=== PATIENT | male | born 1990 | race African-American/Black ===

== ENCOUNTER 2018-01-25 06:26 | Inpatient (IN) | payer OTHER ==
[2018-01-25] MEDS ORDERED: THROMBIN (BOVINE) 5,000 UNIT VIAL TP ONE ×3 (07:16→12:05)
[2018-01-25] MEDS ORDERED: oxyCODONE HCL 10 MG SUSTAINED ACTING TABLET ONE (07:20)
[2018-01-25] MEDS ORDERED: ceFAZolin SODIUM 1 GM VIAL ONE ×3 (07:20→12:05)
[2018-01-25] MEDS ORDERED: ePHEDrine SULFATE 50 MG/1 ML AMPULE ONE (07:29)
[2018-01-25] MEDS ORDERED: ROCURONIUM BROMIDE 50 MG/5 ML VIAL ONE ×2 (07:29→10:18)
[2018-01-25] MEDS ORDERED: PROPOFOL 20 ML ONE ×18 (07:29→14:34)
[2018-01-25] MEDS ORDERED: SUCCINYLCHOLINE CHLORIDE 200 MG/10 ML VIAL ONE (07:29)
[2018-01-25] MEDS ORDERED: ONDANSETRON 4 MG/2 ML VIAL ONE (07:30)
[2018-01-25] MEDS ORDERED: DEXAMETHASONE SOD PHOSPHATE 4 MG/1 ML VIAL ONE (07:30)
[2018-01-25] MEDS ORDERED: oxyCODONE HCL 5 MG TABLET PO ONE (07:30)
[2018-01-25] MEDS ORDERED: MIDAZOLAM HCL 2 MG/2 ML SINGLE DOSE VIAL ONE (07:30)
[2018-01-25] MEDS ORDERED: LIDOCAINE HCL/PF 2% SDV 5ML VIAL ONE ×2 (07:30→14:43)
[2018-01-25] MEDS ORDERED: CEFAZOLIN 1 GM in DEXTROSE 5%-WATER - 100 ML IVPB ONE (07:40)
[2018-01-25] MEDS ORDERED: oxyCODONE HCL 10 MG SUSTAINED ACTING TABLET PO STA (07:40)
[2018-01-25] MEDS ORDERED: KETAMINE HCL 200 MG/20 ML VIAL ONE ×2 (07:42)
[2018-01-25] MEDS ORDERED: morphine SULFATE/Preservative Free 0.5 MG/ML (1cc Syringe) ONE (07:55)
[2018-01-25] MEDS ORDERED: LIDOCAINE HCL 2% (20ML MULTI-DOSE VIAL) NR ONE (07:57)
--- NOTE | 2018-01-25 08:34 | HP ---
History & Physical Update - History History: No Change - Physical Physical: No Change - Assessment Assessment: No Change - Plan Plan: No Change (H&P is located in his paper chart. Complete and accurate. No new medications or complaints since intial H&P.)
[2018-01-25] MEDS ORDERED: HEPARIN NA (PORCINE) 5,000 UNITS/ML 1ML VIAL ONE (09:24)
[2018-01-25] MEDS ORDERED: LIDOCAINE 1%/EPI 1:100000 (50 ML MULTI DOSE VIAL) INF ONE (09:30)
--- NOTE | 2018-01-25 10:44 | EKG ---
Test Reason : Blood Pressure : / mmHG Vent. Rate : 060 BPM Atrial Rate : 060 BPM P-R Int : 142 ms QRS Dur : 086 ms QT Int : 366 ms P-R-T Axes : 074 055 017 degrees QTc Int : 366 ms NORMAL SINUS RHYTHM NORMAL ECG NO PREVIOUS ECGS AVAILABLE Confirmed by EVER PAIGE, LACEY ([id number]) on 01/25/2018 10:44:25 AM Referred By: DAYA JUSTIN Confirmed By:LACEY CURTIS MD
[2018-01-25] MEDS ORDERED: GELATIN SPONGE,ABSORBABLE 1 GM PACKET TP ONE (11:05)
[2018-01-25] MEDS ORDERED: hydrALAZINE HCL 20 MG/ML VIAL ONE ×2 (11:19→11:24)
[2018-01-25] MEDS ORDERED: BUPIVACAINE HCL/PF 0.25% (2.5MG/ML) 10 ML VIAL ONE ×2 (14:27→14:42)
[2018-01-25] MEDS ORDERED: ONDANSETRON 4 MG/2 ML VIAL IVPUSH PRN ×2 (15:14→16:21)
[2018-01-25] MEDS ORDERED: LACTATED RINGERS SOLUTION 1,000 ML IV SCH (15:15)
--- NOTE | 2018-01-25 16:20 | OP ---
Operative Note - Note: Operative Date: 01/25/18 Pre-Operative Diagnosis: Spinal scoliosis Operation: T7-L4 posterior spinal fusion, instrumentation w/ multilevel facetectomy Post-Operative Diagnosis: Same as Pre-op Surgeon: Fady Villarreal Landfill Grader: Doug Wilkerson Anesthesiologist/COMPENSATION AND BENEFITS MANAGER: Nieves Gutierrez Anesthesia: General Estimated Blood Loss (mls): 800 Drains, Volume Out (mls): 580 (campo/clear) Blood Volume Replaced (mls): 250 (cell saver) Fluid Volume Replaced (mls): 3,500 Operative Report Dictated: Yes
[2018-01-25] MEDS ORDERED: oxyCODONE HCL 5 MG TABLET PO PRN ×2 (16:21)
[2018-01-25] MEDS ORDERED: diphenhydrAMINE HCL 25 MG CAPSULE (FP) PO PRN (16:21)
--- NOTE | 2018-01-25 16:21 | SURG ---
Surgery [employer] Lead Note [employer] Lead: Doug Wilkerson PA-C Date of Service: 01/25/18 Diagnosis: Spinal scoliosis Procedure: T7-L4 posterior spinal fusion with instrumentation and multilevel facetectomy I was present for the entirety of the operative procedure. For further detail, please refer to operative report. Visit type - Case Type Case Type: Scheduled - New patient This patient is new to me today: Yes Date on this admission: 01/25/18
[2018-01-25] MEDS ORDERED: LACTATED RINGERS SOLUTION 1,000 ML/1,000 ML INFUS.BAG IV SCH (16:30)
[2018-01-25] MEDS ORDERED: ACETAMINOPHEN 325 MG TABLET (FP) PO SCH (16:30)
[2018-01-25] MEDS ORDERED: BUPIVACAINE LIPOSOME/PF (EXPAREL) 266 MG/20 ML VIAL NR ONE (16:45)
[2018-01-25] MEDS ORDERED: ACETAMINOPHEN 1000 MG/100 ML VIAL (NON FORMULARY) IVPB ONE (16:45)
[2018-01-25] MEDS ORDERED: ACETAMINOPHEN INJECTION 100 ML IVPB ONE (18:29)
[2018-01-25] MEDS: LACTATED RINGERS SOLUTION 1,000 ML/1,000 ML INFUS.BAG IV SCH ×2 (18:44→19:30)
--- NOTE | 2018-01-25 19:54 | CONSULT ---
Consultation: REQUESTING PROVIDER: Dr. Fontaine CONSULT REQUEST: We have been asked to medically evaluate this patient for S/P T7-L4 posterior spinal fusion, instrumentation w/ multilevel facetectomy. HISTORY OF PRESENT ILLNESS: Patient is a 27 year old male with a PMHx of scoliosis who presented today for elective surgical procedure for Spinal fusion and facetectomy. Patient reports chronic lumbar and thoracic back pain for the past 5 years that has been worsening in the last 2 years with unsuccessful attempts at medical management. Patient has tried epidurals, physical therapy, and pain management without much relief. Patient then had MRI of the back done, which revealed a bulging disc. 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 Patient was fluid resuscitated with 3.5 Liters. Patient now transmitted to ICU for further monitoring and management. Patient currently denies any fever, chills, nausea, vomiting, abdominal pain, chest pain, palpitations, shortness of breath, headaches, dizziness. 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 Single and lives with family Denies Alcohol use Denies smoking Reports using Marijuana Family Hx: Denies Allergies: NKDA REVIEW OF SYSTEMS: CONSTITUTIONAL: Absent: fever, chills, diaphoresis, generalized weakness, malaise, loss of appetite, weight change HEENT: Absent: rhinorrhea, nasal congestion, throat pain, throat swelling, difficulty swallowing, mouth swelling, ear pain, eye pain, visual changes CARDIOVASCULAR: Absent: chest pain, syncope, palpitations, irregular heart rate, lightheadedness , peripheral edema RESPIRATORY: Absent: cough, shortness of breath, dyspnea with exertion, orthopnea, wheezing, stridor, hemoptysis GASTROINTESTINAL: Absent: abdominal pain, abdominal distension, nausea, vomiting, diarrhea, constipation, melena, hematochezia GENITOURINARY: Absent: dysuria, frequency, urgency, hesitancy, hematuria, flank pain, genital pain MUSCULOSKELETAL: Absent: myalgia, arthralgia, joint swelling, back pain, neck pain SKIN: Absent: rash, itching, pallor HEMATOLOGIC/IMMUNOLOGIC: Absent: easy bleeding, easy bruising, lymphadenopathy, frequent infections ENDOCRINE: Absent: unexplained weight gain, unexplained weight loss, heat intolerance, cold intolerance NEUROLOGIC: Absent: headache, focal weakness or paresthesias, dizziness, unsteady gait, seizure, mental status changes, bladder or bowel incontinence PSYCHIATRIC: Absent: anxiety, depression, suicidal or homicidal ideation, hallucinations. PHYSICAL EXAMINATION Vital Signs - 24 hr 01/25/18 01/25/18 01/25/18 07:05 07:12 16:10 Temperature 98.8 F 100.4 F H Pulse Rate 64 93 H Respiratory 16 10 Rate Blood Pressure 123/75 106/46 L O2 Sat by Pulse 100 97 Oximetry (%) 01/25/18 01/25/18 16:25 16:40 Temperature Pulse Rate 97 H 88 Respiratory 12 14 Rate Blood Pressure 106/50 L 104/49 L O2 Sat by Pulse 99 99 Oximetry (%) GENERAL: Awake, alert, and fully oriented, in no acute distress. HEAD: Normal with no signs of trauma. EYES: Pupils equal, round and reactive to light, extraocular movements intact, sclera anicteric, conjunctiva clear. No lid lag. EARS, NOSE, THROAT: Oropharynx clear without exudates. Moist mucous membranes. NECK: (-) lymphadenopathy, JVD, or masses. LUNGS: Breath sounds equal, clear to auscultation bilaterally. No wheezes, and no crackles. No accessory muscle use. HEART: Regular rate and rhythm, normal S1 and S2 without murmur, rub or gallop. ABDOMEN: Soft, nontender, not distended, normoactive bowel sounds, no guarding, no rebound, no masses. MUSCULOSKELETAL: No CVA tenderness. UPPER EXTREMITIES: No peripheral edema. LOWER EXTREMITIES: No peripheral edema. NEUROLOGICAL: Cranial nerves II-XII intact. Normal speech. Sensory intact, motor strength 5/5 bilaterally PSYCHIATRIC: Cooperative. Good eye contact. Appropriate mood and affect. SKIN: Warm, dry, normal turgor, no rashes or lesions noted. DRAINS: Campo in place, Davol with sanguinous drainage Laboratory Results - last 24 hr 01/25/18 01/25/18 06:40 07:30 Blood Type O POSITIVE O POSITIVE Antibody Screen Negative Crossmatch IS Only See Detail Active Medications Generic Name Dose Route Start Last Admin Trade Name Freq PRN Reason Stop Dose Admin Acetaminophen 650 mg 01/25/18 18:00 Tylenol - PO Q6HPO TARIK Diazepam 2 mg 01/25/18 22:00 Valium - PO BID [facility] Diphenhydramine HCl 25 mg 01/25/18 16:21 Benadryl - PO Q6H PRN FOR ITCHING Docusate Sodium 100 mg 01/25/18 22:00 Colace - PO TID [facility] Ferrous Sulfate 325 mg 01/26/18 08:00 Feosol - PO DAILY@0800 [facility] Folic Acid 1 mg 01/26/18 10:00 Folic Acid - PO DAILY [facility] Heparin Sodium (Porcine) 5,000 unit 01/26/18 10:00 Heparin - SQ TID [facility] Lactated Ringer's 1,000 ml in 1,000 mls @ 125 mls/hr 01/25/18 18:45 01/25/18 18:44 Lactated Ringers Solution IV 0 mls ASDIR [facility] Administration Ondansetron HCl 4 mg 01/25/18 15:14 Zofran Injection IVPUSH 01/26/18 15:13 Q6H PRN NAUSEA AND/OR VOMITING Ondansetron HCl 4 mg 01/25/18 16:21 Zofran Injection IVPUSH Q6H PRN NAUSEA Oxycodone HCl 5 mg 01/25/18 15:17 Roxicodone - PO Q3H PRN PAIN LEVEL 1-5 Oxycodone HCl 10 mg 01/25/18 15:17 Roxicodone - PO Q3H PRN PAIN LEVEL 6-10 Oxycodone HCl 10 mg 01/26/18 10:00 Oxycontin - PO 01/29/18 15:16 BID [facility] ASSESSMENT/PLAN: Patient is a 27 year old male who presented for elective spinal surgery and is now S/P spinal fusion and facetectomy. Patient transferred to ICU for further monitoring and management. SURGERY #T7-L4 posterior spinal fusion, instrumentation w/ multilevel facetectomy. -POD #0 W/ no complications -Pain control with Roxicodone 10mg BID and 10mg Q3H PRN, Valium 2mg BID, Tylenol 650mg Q6H -IV fluids with LR @125mls/hr -Mechanical Prophylaxis with SCD's and TARA's -Zophran PRN for nausea -Incentive Spirometer QID -Strict I&O's with drainage monitoring -May remove campo when patient ambulates -Colace for bowel regimen -PT/OT, OOB -Repeat Spine X-ray in the morning F/E/N -IV LR @125mls/hr -Electrolytes wnl -Clear liquids Prophylaxis -SCD's and TARA's for DVT -No GI required Disposition -Full code -ICU monitoring Dispo: We will continue to follow the patient. Thank you for this consultative opportunity. Flavia Gallego [id number] Visit type - Emergency Visit Emergency Visit: Yes ED Registration Date: 01/25/18 Care time: The patient presented to the Emergency Department on the above date and was hospitalized for further evaluation of their emergent condition. - New Patient This patient is new to me today: Yes Date on this admission: 01/25/18 - Critical Care Critical Care patient: Yes Total Critical Care Time (in minutes): 45 Critical Care Statement: The care of this patient involved high complexity decision making to prevent further life threatening deterioration of the patient 's condition and/or to evaluate & treat vital organ system(s) failure or risk of failure.
[2018-01-25] MEDS: ACETAMINOPHEN 325 MG TABLET (FP) PO SCH (20:00)
[2018-01-25] MEDS: oxyCODONE HCL 5 MG TABLET PO PRN ×2 (20:32→21:59)
--- NOTE | 2018-01-25 21:33 | OP ---
DATE OF OPERATION: 01/25/2018 PREOPERATIVE DIAGNOSIS: Scoliosis. POSTOPERATIVE DIAGNOSIS: Scoliosis. PROCEDURE PERFORMED: 1. Posterior spinal fusion, T7-8, T8-9, T9-10, T10-11, T11-12, T12-L1, L1-2, L2 -3, L3-4. 2. Placement of instrumentation, T7 to 4. 3. Osteotomy, T7-8, T8-9, T9-10, T10-11, T11-12, T12-L1, L1-2, L2-3, L3-4. SURGEON: Fady Villarreal MD HEATING AND VENTILATION ENGINEER: Aron Curtis MD; NAVARRO Merida ESTIMATED BLOOD LOSS: 800 mL. IV FLUIDS: Per Anesthesia. ANESTHESIA: General. COMPLICATIONS: There were none. DISPOSITION: Patient brought to the PACU in stable condition. INDICATIONS FOR SURGERY: The patient is a 27-year-old who has been suffering from scoliosis and back pain for many months now. He had known progression of his curve. He had been following this curve for a while and had known progression of his curve. He had gone through an exhaustive course of treatment for this, which included medications, physical therapy as well as injections. Unfortunately, his pain continued to persist despite all this. At this point, risks, benefits, and alternatives were discussed and the patient consented to surgery. OPERATIVE NOTE: The patient was brought to the operating room by anesthesia staff. After appropriate patient identification was performed, general anesthesia was given. Appropriate anesthetic lines were placed. Perez catheter was inserted. He was placed prone onto the OR table with all areas if bony prominences were padded at this time. An x-ray was taken to libra off the T7 to L4 levels. Then 10 mL of lidocaine with epinephrine was injected. His back was prepped and draped in a sterile manner. At this point in time, an incision was made from the top of T7 down to the bottom of L4. Dissection was carried down to the fascia The fascia was split open at this time and retractors were placed in. Using standard techniques, pedicle screws were placed from T7 down to L4. Facetectomy/osteotomy was performed at every level to mobilize the spine. After this was completed, a ondina was measured and placed in. Caps were placed on. Reduction was performed. Final tightening was performed. The posterior elements were decorticated. Bone graft was laid down. A drain was placed. The fascia was closed with a number 1 Vicryl suture. Subcutaneous tissue was closed with 2-0 Vicryl sutures. Skin was closed with 3-0 Monocryl suture. Dermabond was applied. Steri-Strips were applied. Sterile dressing was applied. Patient was placed supine in the OR bed and brought to the PACU, intubated. Neuro monitoring was stable throughout the operative course. Any MCKEE/[id number] MTDD
[2018-01-25] MEDS ORDERED: PT OWN MED DRAWER 7, Y5N ONE (21:52)
[2018-01-25] MEDS: DOCUSATE SODIUM 100 MG CAPSULE (FP) PO SCH (21:54)
[2018-01-25] MEDS: diazePAM 2 MG TABLET PO SCH (21:54)
[2018-01-26] MEDS: LACTATED RINGERS SOLUTION 1,000 ML/1,000 ML INFUS.BAG IV SCH (01:32)
[2018-01-26] MEDS: ACETAMINOPHEN 325 MG TABLET (FP) PO SCH ×4 (01:37→19:39)
[2018-01-26] MEDS: oxyCODONE HCL 5 MG TABLET PO PRN ×5 (02:53→19:54)
[2018-01-26 05:52] LABS: HEMATOCRIT 31.1 % (35.4-49); HEMOGLOBIN 10.2 GM/dL (11.7-16.9); MCH 28.1 pg (25.7-33.7); MCHC 32.7 g/dl (32.0-35.9); MEAN CELL VOLUME 85.8 fl (80-96); MEAN PLT VOLUME 9.9 fl (7.5-11.1); PLATELET COUNT 103 K/MM3 (134-434); RBC 3.63 M/mm3 (4.00-5.60); RDW 13.4 % (11.9-15.9); WHITE BLOOD COUNT 9.5 K/mm3 (4.0-10.0)
[2018-01-26] MEDS: DOCUSATE SODIUM 100 MG CAPSULE (FP) PO SCH ×3 (06:45→21:23)
--- NOTE | 2018-01-26 07:53 | CONSULT ---
Consultation: REQUESTING PROVIDER: CONSULT REQUEST: We have been asked to medically evaluate this patient for medical management. HISTORY OF PRESENT ILLNESS: 27 yo M with a PMHx of scoliosis who presented 01/25/18 for elective Spinal fusion and facetectomy. Patient has chronic lumbar and thoracic back pain for the past 5 years and has attempted multiple non-surgical modalities with little to no improvement. MRI of the spine revealed a bulging disc.Denies any trauma, falls, or major injuries. Patient is now POD #1 S/P T7-L4 posterior spinal fusion, instrumentation w/ multilevel facetectomy no complications. Patient then transmitted to ICU for further monitoring and management. Patient currently denies any EID, CP, palpitations, SOB, abdominal pain, nausea, vomiting , fever, or chills. 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 and lives with family Family Hx: Denies Allergies: NKDA REVIEW OF SYSTEMS: CONSTITUTIONAL: Absent: fever, chills, diaphoresis, generalized weakness, malaise, loss of appetite, weight change HEENT: Absent: rhinorrhea, nasal congestion, throat pain, throat swelling, difficulty swallowing, mouth swelling, ear pain, eye pain, visual changes CARDIOVASCULAR: Absent: chest pain, syncope, palpitations, irregular heart rate, lightheadedness , peripheral edema RESPIRATORY: Absent: cough, shortness of breath, dyspnea with exertion, orthopnea, wheezing, stridor, hemoptysis GASTROINTESTINAL: Absent: abdominal pain, abdominal distension, nausea, vomiting, diarrhea, constipation, melena, hematochezia GENITOURINARY: Absent: dysuria, frequency, urgency, hesitancy, hematuria, flank pain, genital pain MUSCULOSKELETAL: back pain Absent: myalgia, arthralgia, joint swelling,, neck pain SKIN: Absent: rash, itching, pallor HEMATOLOGIC/IMMUNOLOGIC: Absent: easy bleeding, easy bruising, lymphadenopathy, frequent infections ENDOCRINE: Absent: unexplained weight gain, unexplained weight loss, heat intolerance, cold intolerance NEUROLOGIC: Absent: headache, focal weakness or paresthesias, dizziness, unsteady gait, seizure, mental status changes, bladder or bowel incontinence PSYCHIATRIC: Absent: anxiety, depression, suicidal or homicidal ideation, hallucinations. PHYSICAL EXAMINATION Vital Signs - 24 hr 01/25/18 01/25/18 01/25/18 16:10 16:25 16:40 Temperature 100.4 F H Pulse Rate 93 H 97 H 88 Respiratory 10 12 14 Rate Blood Pressure 106/46 L 106/50 L 104/49 L O2 Sat by Pulse 97 99 99 Oximetry (%) 01/25/18 01/25/18 01/25/18 16:55 17:10 17:25 Temperature Pulse Rate 98 H 98 H 88 Respiratory 16 16 18 Rate Blood Pressure 131/61 136/70 140/76 O2 Sat by Pulse 100 100 100 Oximetry (%) 01/25/18 01/25/18 01/25/18 17:40 17:55 18:10 Temperature Pulse Rate 91 H 85 94 H Respiratory 18 18 18 Rate Blood Pressure 139/78 138/72 141/71 O2 Sat by Pulse 100 100 100 Oximetry (%) 01/25/18 01/25/18 01/25/18 18:25 18:40 18:55 Temperature Pulse Rate 88 88 84 Respiratory 18 18 18 Rate Blood Pressure 125/67 125/67 115/71 O2 Sat by Pulse 100 100 100 Oximetry (%) 01/25/18 01/25/18 01/25/18 19:10 19:25 20:42 Temperature 100.2 F H 98.1 F Pulse Rate 86 83 73 Respiratory 18 18 16 Rate Blood Pressure 126/68 119/58 L 121/59 L O2 Sat by Pulse 100 100 100 Oximetry (%) 01/25/18 01/26/18 01/26/18 22:00 00:00 02:00 Temperature 98.2 F 98.1 F Pulse Rate 74 62 61 Respiratory 18 16 16 Rate Blood Pressure 111/57 L 96/57 L 113/64 O2 Sat by Pulse Oximetry (%) 01/26/18 01/26/18 01/26/18 03:00 04:00 06:00 Temperature 98.8 F Pulse Rate 62 66 68 Respiratory 18 18 18 Rate Blood Pressure 133/55 L 101/50 L 102/55 L O2 Sat by Pulse Oximetry (%) GENERAL:AAOx3, NAD. HEAD:NCAT. EYES: PERRLA, EOMI, sclera anicteric, conjunctiva clear. No lid lag. EARS, NOSE, THROAT:Moist mucous membranes. NECK: Supple without lymphadenopathy, JVD, or masses. LUNGS: CTAB. No wheezes, and no crackles. No accessory muscle use. HEART: RRR, normal S1 and S2, no M/G/R ABDOMEN: Soft, NTND,NABS, no guarding, no rebound, no masses. No organomegally MUSCULOSKELETAL: No CVA tenderness. UPPER EXTREMITIES: No peripheral edema. LOWER EXTREMITIES: No peripheral edema. NEUROLOGICAL: Cranial nerves II-XII intact. Normal speech. Sensory intact, neurovascularly intact. 5/5 strength bilt. lower ext. PSYCHIATRIC: Cooperative. Good eye contact. Appropriate mood and affect. SKIN: Warm, dry, normal turgor, no rashes or lesions noted. DRAINS: Campo in place, Davol with serosanguineous drainage Laboratory Results - last 24 hr 01/25/18 01/25/18 01/26/18 06:40 07:30 05:30 WBC 9.5 RBC 3.63 L Hgb 10.2 L Hct 31.1 L MCV 85.8 MCH 28.1 MCHC 32.7 RDW 13.4 Plt Count 103 L MPV 9.9 Blood Type O POSITIVE O POSITIVE Antibody Screen Negative Crossmatch IS Only See Detail Active Medications Generic Name Dose Route Start Last Admin Trade Name Freq PRN Reason Stop Dose Admin Acetaminophen 650 mg 01/25/18 18:00 01/26/18 06:45 Tylenol - PO 650 mg Q6HPO [facility] Administration Diazepam 2 mg 01/25/18 22:00 01/25/18 21:54 Valium - PO 2 mg BID [facility] Administration Diphenhydramine HCl 25 mg 01/25/18 16:21 01/26/18 03:00 Benadryl - PO 25 mg Q6H PRN Administration FOR ITCHING Docusate Sodium 100 mg 01/25/18 22:00 01/26/18 06:45 Colace - PO 100 mg TID [facility] Administration Ferrous Sulfate 325 mg 01/26/18 08:00 Feosol - PO DAILY@0800 [facility] Folic Acid 1 mg 01/26/18 10:00 Folic Acid - PO DAILY [facility] Heparin Sodium (Porcine) 5,000 unit 01/26/18 10:00 Heparin - SQ TID [facility] Lactated Ringer's 1,000 ml in 1,000 mls @ 125 mls/hr 01/25/18 18:45 01/26/18 01:32 Lactated Ringers Solution IV 125 mls/hr ASDIR [facility] Administration Ondansetron HCl 4 mg 01/25/18 15:14 Zofran Injection IVPUSH 01/26/18 15:13 Q6H PRN NAUSEA AND/OR VOMITING Ondansetron HCl 4 mg 01/25/18 16:21 Zofran Injection IVPUSH Q6H PRN NAUSEA Oxycodone HCl 5 mg 01/25/18 15:17 01/25/18 21:59 Roxicodone - PO 5 mg Q3H PRN Administration PAIN LEVEL 1-5 Oxycodone HCl 10 mg 01/25/18 15:17 01/26/18 06:46 Roxicodone - PO 10 mg Q3H PRN Administration PAIN LEVEL 6-10 Oxycodone HCl 10 mg 01/26/18 10:00 Oxycontin - PO 01/29/18 15:16 BID [facility] ASSESSMENT/PLAN: 27 year old male who presented for elective spinal surgery and is now S/P spinal fusion and facetectomy. Patient transferred to ICU for further monitoring and management. Dispo: We will continue to follow the patient. Thank you for this consultative opportunity. Avel Menard MD PGY-3 Problem List - Problems (1) S/P spinal fusion Assessment/Plan: T7-L4 posterior spinal fusion, instrumentation w/ multilevel facetectomy. * POD #1 ; no complications * Pain control with Roxicodone 10mg BID and 10mg Q3H PRN, Valium 2mg BID, Tylenol 650mg Q6H * IV fluids with LR @125mls/hr * Mechanical Prophylaxis with SCD's and TARA's * Zophran PRN for nausea * Incentive Spirometer QID * Strict I&O's with drainage monitoring * May remove campo when patient ambulates * Colace for bowel regimen * PT/OT, OOB * Repeat Spine X-ray today Visit type - Emergency Visit Emergency Visit: Yes ED Registration Date: 01/25/18 Care time: The patient presented to the Emergency Department on the above date and was hospitalized for further evaluation of their emergent condition. - New Patient This patient is new to me today: Yes Date on this admission: 01/26/18 - Critical Care Critical Care patient: Yes Total Critical Care Time (in minutes): 32 Critical Care Statement: The care of this patient involved high complexity decision making to prevent further life threatening deterioration of the patient 's condition and/or to evaluate & treat vital organ system(s) failure or risk of failure.
[2018-01-26 08:05] LABS: ANION GAP 6 MMOL/L (8-16); BLOOD UREA NITROGEN 12 mg/dL (7-18); CALCIUM 7.7 mg/dL (8.5-10.1); CHLORIDE 105 mmol/L (98-107); CO2 29 mmol/L (21-32); CREATININE 0.9 mg/dL (0.55-1.3); GLUCOSE,RANDOM 85 mg/dL (74-106); POTASSIUM 3.9 mmol/L (3.5-5.1); SODIUM 140 mmol/L (136-145)
--- NOTE | 2018-01-26 08:34 | PN ---
Progress Note (short form) - Note Progress Note: POD #1 Alert. Doing well. C/o incisional tenderness. Pain managed with standing orders per Anesthesia. Hasn't been oob yet. Denies n/v/f/c, CP, SOB or LIZARRAGA. Last Vital Signs Temp Pulse Resp BP Pulse Ox 98.8 F 68 18 102/55 L 100 01/26/18 06:00 01/26/18 06:00 01/26/18 06:00 01/26/18 06:00 01/25/18 20:42 CBC, BMP 01/26/18 05:30 01/26/18 05:30 Gen: mild distress Neck: soft. supple. nt Abd: soft. NT. ND Back: dressing c/d/i. Hemovac 305mL(sanguinous) on suction : campo > 30mL/hr LE: SCDs bilat. Soft. NT Neuro: GMNVI all extremities <Doug Wilkerson P - Last Filed: 01/26/18 08:55> - Note Progress Note: Patient seen and examined Agree with above Patient with pain today Neuro exam : 5/5 DF, PF, EHL B/L -OOB tomorrow <Fady Villarreal - Last Filed: 01/28/18 10:45> Problem List - Problems (1) S/P spinal fusion Assessment/Plan: POD #1 s/p T7-L4 posterior fusion with multilevel facetectomies. Pain management per Anesthesia OOB to chair today PT Incentive spirometer Pulmonary toileting Can dc campo once oob Monitor Hemovac output and record q shift Above plan discussed with Dr. Villarreal and agrees. Code(s): Z98.1 - ARTHRODESIS STATUS <Doug Wilkerson P - Last Filed: 01/26/18 08:55>
[2018-01-26] MEDS ORDERED: oxyCODONE HCL 5 MG TABLET PO PRN (09:00)
[2018-01-26] MEDS ORDERED: oxyCODONE HCL 10 MG SUSTAINED ACTING TABLET PO SCH (10:00)
[2018-01-26] MEDS: oxyCODONE HCL 10 MG SUSTAINED ACTING TABLET PO SCH ×2 (10:01→21:22)
[2018-01-26] MEDS: diazePAM 2 MG TABLET PO SCH (10:01)
[2018-01-26] MEDS: FERROUS SO4 325 MG TABLET (FP) PO SCH (10:01)
[2018-01-26] MEDS: FOLIC ACID 1 MG TABLET (FP) PO SCH (10:01)
[2018-01-26] MEDS: HEPARIN NA (PORCINE) 5,000 UNITS/ML 1ML VIAL SQ SCH ×2 (10:02→15:45)
--- NOTE | 2018-01-26 11:36 | PN ---
Physical Exam: SUBJECTIVE: Patient seen and examined at bedside. He is lying down comfortably. He reports to have significant back pain but otherwise no complaints. He denies any breathing difficulties, SOB, chest pain, or abdominal pain. he is using his incentive spirometer once every half hour and is easily able to max out the spirometer. He states he is not yet passing any flatus. OBJECTIVE: Vital Signs Period Temp Pulse Resp BP Sys/Rice Pulse Ox Last 24 Hr 98.1 F-100.4 F 61-98 10-18 96-141/46-78 97-100 GENERAL: The patient is awake, alert, and fully oriented, in no acute distress. HEAD: Normal with no signs of trauma. EYES: PERRL, extraocular movements intact, sclera anicteric, conjunctiva clear. No ptosis. ENT: Ears normal, nares patent, oropharynx clear without exudates, moist mucous membranes. NECK: Trachea midline, full range of motion, supple. LUNGS: Breath sounds equal, clear to auscultation bilaterally, no wheezes, no crackles, no accessory muscle use. HEART: Regular rate and rhythm, S1, S2 without murmur, rub or gallop. ABDOMEN: Soft, nontender, nondistended, normoactive bowel sounds, no guarding, no rebound, no hepatosplenomegaly, no masses. EXTREMITIES: 2+ pulses, warm, well-perfused, no edema. NEUROLOGICAL: Cranial nerves II through XII grossly intact. Normal speech, gait not observed. PSYCH: Normal mood, normal affect. SKIN: Warm, dry, normal turgor, no rashes or lesions noted DRAINS: Campo in place, Davol with serosanguineous drainage. Laboratory Results - last 24 hr 01/26/18 01/26/18 05:30 05:30 WBC 9.5 RBC 3.63 L Hgb 10.2 L Hct 31.1 L MCV 85.8 MCH 28.1 MCHC 32.7 RDW 13.4 Plt Count 103 L MPV 9.9 Sodium 140 Potassium 3.9 Chloride 105 Carbon Dioxide 29 Anion Gap 6 L BUN 12 Creatinine 0.9 Creat Clearance w eGFR > 60 Random Glucose 85 Calcium 7.7 L Active Medications Generic Name Dose Route Start Last Admin Trade Name Freq PRN Reason Stop Dose Admin Acetaminophen 650 mg 01/25/18 18:00 01/26/18 06:45 Tylenol - PO 650 mg Q6HPO TARIK Administration Diazepam 2 mg 01/25/18 22:00 01/26/18 10:01 Valium - PO 2 mg BID TARIK Administration Diphenhydramine HCl 25 mg 01/25/18 16:21 01/26/18 03:00 Benadryl - PO 25 mg Q6H PRN Administration FOR ITCHING Docusate Sodium 100 mg 01/25/18 22:00 01/26/18 06:45 Colace - PO 100 mg TID TARIK Administration Ferrous Sulfate 325 mg 01/26/18 08:00 01/26/18 10:01 Feosol - PO 325 mg DAILY@0800 TARIK Administration Folic Acid 1 mg 01/26/18 10:00 01/26/18 10:01 Folic Acid - PO 1 mg DAILY TARIK Administration Heparin Sodium (Porcine) 5,000 unit 01/26/18 10:00 01/26/18 10:02 Heparin - SQ 5,000 unit TID TARIK Administration Lactated Ringer's 1,000 ml in 1,000 mls @ 125 mls/hr 01/25/18 18:45 01/26/18 01:32 Lactated Ringers Solution IV 125 mls/hr ASDIR TARIK Administration Ondansetron HCl 4 mg 01/25/18 15:14 Zofran Injection IVPUSH 01/26/18 15:13 Q6H PRN NAUSEA AND/OR VOMITING Ondansetron HCl 4 mg 01/25/18 16:21 Zofran Injection IVPUSH Q6H PRN NAUSEA Oxycodone HCl 10 mg 01/26/18 10:00 01/26/18 10:01 Oxycontin - PO 01/29/18 09:59 10 mg BID TARIK Administration Oxycodone HCl 15 mg 01/26/18 09:00 Roxicodone - PO Q4H PRN PAIN LEVEL 8 - 10 Oxycodone HCl 5 mg 01/26/18 09:00 Roxicodone - PO Q4H PRN PAIN LEVEL 1 - 3 Oxycodone HCl 10 mg 01/26/18 09:00 Roxicodone - PO Q4H PRN PAIN LEVEL 4 - 7 ASSESSMENT/PLAN: Assessment: Patient is a 27 yo M w a pmh of scoliosis who is here for a T7-L4 posterior spinal laminectomy and multiple facetectomies. He is now PO day #1. He has no respiratory distress. Vitals are stable and WNL. He is doing well with the spirometer and maxing it out every half hour. Plan is to get him out of bed today and have him take part in physical therapy. He endorses significant back pain which is being treated with oxycontin. Plan: MSK: # T7 - L4 Spinal Laminectomy + multiple facetectomies -POD #1 W/ no complications -Pain control with Roxicodone 10mg BID and 5/10/15mg Q4H PRN for pain rating (1- 3/4-7/8-10), Valium 2mg BID, Tylenol 650mg Q6H -IV fluids with LR @125mls/hr -Mechanical Prophylaxis with SCD's and TARA's -Zophran PRN for nausea -Incentive Spirometer hourly -Strict I&O's with drainage monitoring -May remove campo when patient ambulates -Colace for bowel regimen -PT/OT, OOB - Straightening of the spine seen on the repeat morning X-ray Resp: - No respiratory difficulty. - Patient is maxing out the spirometer twice an hour. - CTAB GI: - Clear liquid diet - No GI prophylaxis Cardio: - No acute issues Neuro: - No acute issues Prophylaxis: -SCD's and TARA's for DVT -No GI required F/E/N: -IV LR @125mls/hr -Electrolytes wnl -Clear liquids Code status: Full Code Dispo: We will continue to monitor the patient in the ICU Visit type - Emergency Visit Emergency Visit: Yes ED Registration Date: 01/25/18 Care time: The patient presented to the Emergency Department on the above date and was hospitalized for further evaluation of their emergent condition. - New Patient This patient is new to me today: Yes Date on this admission: 01/26/18 - Critical Care Critical Care patient: Yes Total Critical Care Time (in minutes): 36 Critical Care Statement: The care of this patient involved high complexity decision making to prevent further life threatening deterioration of the patient 's condition and/or to evaluate & treat vital organ system(s) failure or risk of failure.
--- NOTE | 2018-01-26 11:46 | PN ---
Teaching Attending Note Name of Resident: Meet Baptiste ATTENDING PHYSICIAN STATEMENT I saw and evaluated the patient. I reviewed the resident's note and discussed the case with the resident. I agree with the resident's findings and plan as documented. SUBJECTIVE: Pt seen and examined in the ICU. Pain relatively controlled. No nausea or vomiting. Low grade temps overnight. No flatus yet. OBJECTIVE: Vital Signs Period Temp Pulse Resp BP Sys/Rice Pulse Ox Last 24 Hr 98.1 F-100.4 F 61-98 12-31 96-141/46-78 97-100 Intake & Output 01/23/18 01/24/18 01/25/18 01/26/18 23:59 23:59 23:59 23:59 Intake Total 3400 1800 Output Total 2330 780 Balance 1070 1020 Weight 77.167 kg Gen: NAD at rest Heart: RRR Lung: decreased breath sounds at the bases Abd: soft, nontender Ext: no edema CBC, BMP 01/26/18 05:30 01/26/18 05:30 Active Medications Acetaminophen (Tylenol -) 650 mg PO Q6HPO [facility] Last Admin: 01/26/18 06:45 Dose: 650 mg Diazepam (Valium -) 2 mg PO BID [facility] Last Admin: 01/26/18 10:01 Dose: 2 mg Diphenhydramine HCl (Benadryl -) 25 mg PO Q6H PRN PRN Reason: FOR ITCHING Last Admin: 01/26/18 03:00 Dose: 25 mg Docusate Sodium (Colace -) 100 mg PO TID [facility] Last Admin: 01/26/18 06:45 Dose: 100 mg Ferrous Sulfate (Feosol -) 325 mg PO DAILY@0800 [facility] Last Admin: 01/26/18 10:01 Dose: 325 mg Folic Acid (Folic Acid -) 1 mg PO DAILY [facility] Last Admin: 01/26/18 10:01 Dose: 1 mg Heparin Sodium (Porcine) (Heparin -) 5,000 unit SQ TID [facility] Last Admin: 01/26/18 10:02 Dose: 5,000 unit Lactated Ringer's (Lactated Ringers Solution) 1,000 ml in 1,000 mls @ 125 mls/ hr IV ASDIR [facility] Last Admin: 01/26/18 01:32 Dose: 125 mls/hr Ondansetron HCl (Zofran Injection) 4 mg IVPUSH Q6H PRN PRN Reason: NAUSEA AND/OR VOMITING Stop: 01/26/18 15:13 Ondansetron HCl (Zofran Injection) 4 mg IVPUSH Q6H PRN PRN Reason: NAUSEA Oxycodone HCl (Oxycontin -) 10 mg PO BID TARIK Stop: 01/29/18 09:59 Last Admin: 01/26/18 10:01 Dose: 10 mg Oxycodone HCl (Roxicodone -) 15 mg PO Q4H PRN PRN Reason: PAIN LEVEL 8 - 10 Oxycodone HCl (Roxicodone -) 5 mg PO Q4H PRN PRN Reason: PAIN LEVEL 1 - 3 Oxycodone HCl (Roxicodone -) 10 mg PO Q4H PRN PRN Reason: PAIN LEVEL 4 - 7 ASSESSMENT AND PLAN: Spinal Scoliosis s/p T7-L4 posterior spinal fusion/Instrumentation w/ multilevel facetectomy - pain control - incentive spirometry - bowel regimen - OOB to chair - rehab/PT - d/c alber when OOB - DVT prophylaxis - disposition per surgery
--- NOTE | 2018-01-26 13:50 | PN ---
Teaching Attending Note Name of Resident: Avel Menard ATTENDING PHYSICIAN STATEMENT I saw and evaluated the patient. I reviewed the resident's note and discussed the case with the resident. I agree with the resident's findings and plan as documented. SUBJECTIVE: Patient is a 27yo male POD #1 due to having Scoliosis OBJECTIVE: Vital Signs Temperature 99.2 F 01/26/18 13:33 Pulse Rate 68 01/26/18 13:33 Respiratory Rate 18 01/26/18 13:33 Blood Pressure 125/69 01/26/18 12:13 O2 Sat by Pulse Oximetry (%) 100 01/25/18 20:42 GENERAL:AAOx3, NAD. HEAD:NCAT. EYES: PERRLA, EOMI, sclera anicteric, conjunctiva clear. EARS, NOSE, THROAT:Moist mucous membranes. NECK: Supple ,No JVD, or masses. LUNGS: CTAB. No wheezes, and no crackles. No accessory muscle use. HEART: RRR, normal S1 and S2, no M/G/R ABDOMEN: Soft, NT, ND, no guarding, no rebound, no masses. No organomegally EXTREMITIES: No peripheral edema. NEUROLOGICAL: per surgeon. able to wiggle his toes PSYCHIATRIC: Cooperative. Good eye contact. Appropriate mood and affect. SKIN: Warm, dry, normal turgor, no rashes or lesions noted. DRAINS: Perez in place, Davol with serosanguineous drainage CBCD WBC 9.5 K/mm3 (4.0-10.0) 01/26/18 05:30 RBC 3.63 M/mm3 (4.00-5.60) L 01/26/18 05:30 Hgb 10.2 GM/dL (11.7-16.9) L 01/26/18 05:30 Hct 31.1 % (35.4-49) L 01/26/18 05:30 MCV 85.8 fl (80-96) 01/26/18 05:30 MCHC 32.7 g/dl (32.0-35.9) 01/26/18 05:30 RDW 13.4 % (11.9-15.9) 01/26/18 05:30 Plt Count 103 K/MM3 (134-434) L 01/26/18 05:30 MPV 9.9 fl (7.5-11.1) 01/26/18 05:30 CMP Sodium 140 mmol/L (136-145) 01/26/18 05:30 Potassium 3.9 mmol/L (3.5-5.1) 01/26/18 05:30 Chloride 105 mmol/L (98-107) 01/26/18 05:30 Carbon Dioxide 29 mmol/L (21-32) 01/26/18 05:30 Anion Gap 6 MMOL/L (8-16) L 01/26/18 05:30 BUN 12 mg/dL (7-18) 01/26/18 05:30 Creatinine 0.9 mg/dL (0.55-1.3) 01/26/18 05:30 Creat Clearance w eGFR > 60 (>60) 01/26/18 05:30 Random Glucose 85 mg/dL (74-106) 01/26/18 05:30 Calcium 7.7 mg/dL (8.5-10.1) L 01/26/18 05:30 Current Medications Generic Name Dose Route Start Last Admin Trade Name Freq PRN Reason Stop Dose Admin Acetaminophen 650 mg 01/25/18 18:00 01/26/18 12:26 Tylenol - PO 650 mg Q6HPO TARIK Administration Diazepam 2 mg 01/25/18 22:00 01/26/18 10:01 Valium - PO 2 mg BID TARIK Administration Diphenhydramine HCl 25 mg 01/25/18 16:21 01/26/18 03:00 Benadryl - PO 25 mg Q6H PRN Administration FOR ITCHING Docusate Sodium 100 mg 01/25/18 22:00 01/26/18 06:45 Colace - PO 100 mg TID TARIK Administration Ferrous Sulfate 325 mg 01/26/18 08:00 01/26/18 10:01 Feosol - PO 325 mg DAILY@0800 TARIK Administration Folic Acid 1 mg 01/26/18 10:00 01/26/18 10:01 Folic Acid - PO 1 mg DAILY TARIK Administration Heparin Sodium (Porcine) 5,000 unit 01/27/18 10:00 01/27/18 10:02 Heparin - SQ 5,000 unit TID TARIK Administration Lactated Ringer's 1,000 ml in 1,000 mls @ 125 mls/hr 01/25/18 18:45 01/26/18 01:32 Lactated Ringers Solution IV 125 mls/hr ASDIR TARIK Administration Ondansetron HCl 4 mg 01/25/18 15:14 Zofran Injection IVPUSH 01/26/18 15:13 Q6H PRN NAUSEA AND/OR VOMITING Ondansetron HCl 4 mg 01/25/18 16:21 Zofran Injection IVPUSH Q6H PRN NAUSEA Oxycodone HCl 10 mg 01/26/18 10:00 01/26/18 10:01 Oxycontin - PO 01/29/18 09:59 10 mg BID TARIK Administration Oxycodone HCl 15 mg 01/26/18 09:00 Roxicodone - PO Q4H PRN PAIN LEVEL 8 - 10 Oxycodone HCl 5 mg 01/26/18 09:00 Roxicodone - PO Q4H PRN PAIN LEVEL 1 - 3 Oxycodone HCl 10 mg 01/26/18 09:00 01/26/18 12:27 Roxicodone - PO 10 mg Q4H PRN Administration PAIN LEVEL 4 - 7 ASSESSMENT AND PLAN: Patient is a 27 year old male who presented for elective spinal surgery and is now s/p spinal fusion and facetectomy. Patient transferred to ICU for further monitoring and management. POD#1 T7-L4 posterior spinal fusion, instrumentation w/ multilevel facetectomy ; Spinal scoliosis On pain medication Oxycodone prn. as per Surgeon to discontinue Benadryl. # Pain management as per Anesthesia DVT Px: Heparin sq as per surgeon to start tomorrow 01/27/2018
[2018-01-26] MEDS ORDERED: ACETAMINOPHEN 1000 MG/100 ML VIAL (NON FORMULARY) IVPB ONE (18:33)
[2018-01-26] MEDS ORDERED: SODIUM CHLORIDE 1,000 ML IV SCH (18:45)
[2018-01-26] MEDS: diazePAM 2 MG TABLET PO PRN (21:23)
[2018-01-27] MEDS: oxyCODONE HCL 5 MG TABLET PO PRN ×4 (01:04→21:04)
[2018-01-27] MEDS: ACETAMINOPHEN 325 MG TABLET (FP) PO SCH ×3 (01:05→11:55)
[2018-01-27] MEDS: diazePAM 2 MG TABLET PO PRN ×2 (04:16→09:57)
[2018-01-27] MEDS: DOCUSATE SODIUM 100 MG CAPSULE (FP) PO SCH ×3 (05:39→21:03)
[2018-01-27] MEDS ORDERED: HEPARIN NA (PORCINE) 5,000 UNITS/ML 1ML VIAL SQ SCH (06:00)
[2018-01-27 06:16] LABS: BASO % 0.3 % (0-2.0); EOS % 0.3 % (0-4.5); HEMOGLOBIN 9.9 GM/dL (11.7-16.9); LYMPH % 17.2 % (8-40); MCH 28.4 pg (25.7-33.7); MEAN CELL VOLUME 86.1 fl (80-96); MEAN PLT VOLUME 9.6 fl (7.5-11.1); MONO % 6.7 % (3.8-10.2); NEUT % 75.5 % (42.8-82.8); PLATELET COUNT 105 K/MM3 (134-434); RBC 3.48 M/mm3 (4.00-5.60); RDW 13.3 % (11.9-15.9); WHITE BLOOD COUNT 7.6 K/mm3 (4.0-10.0)
[2018-01-27 06:49] LABS: ALBUMIN 2.4 g/dl (3.4-5.0); ALK PHOS 51 U/L (45-117); ANION GAP 4 MMOL/L (8-16); BILIRUBIN,TOTAL 0.5 mg/dL (0.2-1); BLOOD UREA NITROGEN 8 mg/dL (7-18); CALCIUM 7.5 mg/dL (8.5-10.1); CHLORIDE 106 mmol/L (98-107); CO2 30 mmol/L (21-32); CREATININE 0.9 mg/dL (0.55-1.3); GLUCOSE,RANDOM 84 mg/dL (74-106); MAGNESIUM 1.7 mg/dL (1.8-2.4); PHOSPHOROUS 2.4 mg/dL (2.5-4.9); POTASSIUM 3.6 mmol/L (3.5-5.1); SGOT/AST 129 U/L (15-37); SGPT/ALT 35 U/L (13-61); SODIUM 141 mmol/L (136-145); TOT PROT 4.7 g/dl (6.4-8.2)
--- NOTE | 2018-01-27 08:20 | PN ---
Progress Note (short form) - Note Progress Note: POD#2 Pt states that his pain level is at a 6/10. He stood for a few seconds at bedside yesterday. Emesis x1 yesterday but did eat after that, no further vomiting. Vital Signs Period Temp Pulse Resp BP Sys/Rice Pulse Ox Last 24 Hr 98.4 F-100.5 F 65-104 18-28 101-132/52-95 100-100 Perez:1900 KAYLENE:300-bloody GEN: A&0x3, complaints of pain CV: RRR Lungs: CTA b/l ABD: soft, non-distended, inc tenderness Back: dressing c/d/i LE: no calf tendnerss or swelling noted b/l Neuro: 5/5 dorsi/plantar/EHL flexion. Quad strength decreased(pt with back Pain) CBC, BMP 01/27/18 05:30 01/27/18 05:30 A/P: 27 yo male s/p T7-L4 posterior spinal fusion, instrumentation w/ multilevel facetectomy Spoke with anesthesia to increase oral pain meds. ALso with Dr. Villarreal and added toradol to his pain managment. DVT ppx with heparin SQ/SCDs and oob/ambulate Diet as tolerated, some nausea most likely from narcotic use. Abdomen non- distended. IV zofran as needed. Discontinue iron since it can be constipating. H&H stable. Will monitor and possibly restart when ambulating more. Continue ICU management <Lisbeth Malloy - Last Filed: 01/27/18 15:11> - Note Progress Note: Patient seen and examined Agree with above OOB to chair today <Fady Villarreal - Last Filed: 01/28/18 10:45>
[2018-01-27] MEDS ORDERED: MAGNESIUM SULF 50% (8.12 MEQ/2 ML-1 GM VIAL) IVPB ONE (08:30)
[2018-01-27] MEDS ORDERED: POTASSIUM PHOSPHATE 30 MM in DEXTROSE 5%-WATER - 250 ML IVPB ONE (09:30)
[2018-01-27] MEDS: FERROUS SO4 325 MG TABLET (FP) PO SCH (09:57)
[2018-01-27] MEDS: FOLIC ACID 1 MG TABLET (FP) PO SCH (09:57)
[2018-01-27] MEDS: oxyCODONE HCL 10 MG SUSTAINED ACTING TABLET PO SCH (09:57)
[2018-01-27] MEDS: HEPARIN NA (PORCINE) 5,000 UNITS/ML 1ML VIAL SQ SCH ×3 (09:59→21:05)
--- NOTE | 2018-01-27 10:00 | PN ---
Physical Exam: SUBJECTIVE: Patient seen and examined this morning at bedside during breakfast. Currently the pain is 5/10, sharp and over the incision site. Patient was unable to sit up this am. Dressing changed last night as per patient. Denies any SOB and uses his incentive spirometer regularly. Admits he is passing flatus however no BM yet. Tolerated dinner overnight without any following nausea or vomiting. Denies any fevers, chills, chest pain, numbness, tingling. OBJECTIVE: Vital Signs Period Temp Pulse Resp BP Sys/Rice Pulse Ox Last 24 Hr 98.4 F-100.5 F 65-104 18-28 101-132/52-95 100-100 GENERAL: A&Ox3, NAD, lying with HOB mildly elevated HEAD: NCAT EYES: PERRL, EOMI ENT: Oropharynx clear without exudates, moist mucous membranes. NECK: No JVD LUNGS: CTAB, no wheezes HEART: Regular rate and rhythm, S1, S2 without murmur ABDOMEN: Soft, nontender, nondistended, + bowel sounds, no guarding BACK: Wound site covered in dressing with drain present; No surrounding erythema or swelling. : Campo catheter in place EXTREMITIES: 2+ pulses, no edema NEUROLOGICAL: Cranial nerves II through XII grossly intact. Normal speech. L4- S1 gross sensation intact. 3/5 Muscle strength to hip flexion (patient attributes to pain), 4/5 to dorsiflexion, plantarflexion. SKIN: Warm, dry Laboratory Results - last 24 hr 01/27/18 01/27/18 05:30 05:30 WBC 7.6 RBC 3.48 L Hgb 9.9 L Hct 30.0 L MCV 86.1 MCH 28.4 MCHC 33.0 RDW 13.3 Plt Count 105 L MPV 9.6 Absolute Neuts (auto) 5.7 Neutrophils % 75.5 Lymphocytes % 17.2 Monocytes % 6.7 Eosinophils % 0.3 Basophils % 0.3 Nucleated RBC % 0 Sodium 141 Potassium 3.6 Chloride 106 Carbon Dioxide 30 Anion Gap 4 L BUN 8 Creatinine 0.9 Creat Clearance w eGFR > 60 Random Glucose 84 Calcium 7.5 L Phosphorus 2.4 L Magnesium 1.7 L Total Bilirubin 0.5 AST 129 H ALT 35 Alkaline Phosphatase 51 Total Protein 4.7 L Albumin 2.4 L Active Medications Acetaminophen (Tylenol -) 650 mg PO Q6HPO [facility] Last Admin: 01/27/18 05:39 Dose: 650 mg Diazepam (Valium -) 2.5 mg PO Q6H PRN PRN Reason: POSTOPERATIVE PAIN Last Admin: 01/27/18 04:16 Dose: 2.5 mg Docusate Sodium (Colace -) 100 mg PO TID [facility] Last Admin: 01/27/18 05:39 Dose: 100 mg Ferrous Sulfate (Feosol -) 325 mg PO DAILY@0800 [facility] Last Admin: 01/26/18 10:01 Dose: 325 mg Folic Acid (Folic Acid -) 1 mg PO DAILY [facility] Last Admin: 01/26/18 10:01 Dose: 1 mg Heparin Sodium (Porcine) (Heparin -) 5,000 unit SQ TID [facility] Sodium Chloride (Normal Saline -) 1,000 mls @ 100 mls/hr IV ASDIR [facility] Last Admin: 01/26/18 19:40 Dose: 100 mls/hr Potassium Phosphate 30 mm/ (Dextrose) 260 mls @ 62.5 mls/hr IVPB ONCE ONE Stop: 01/27/18 13:39 Ondansetron HCl (Zofran Injection) 4 mg IVPUSH Q6H PRN PRN Reason: NAUSEA Last Admin: 01/26/18 19:47 Dose: 4 mg Oxycodone HCl (Oxycontin -) 10 mg PO BID [facility] Stop: 01/29/18 09:59 Last Admin: 01/26/18 21:22 Dose: 10 mg Oxycodone HCl (Roxicodone -) 15 mg PO Q4H PRN PRN Reason: PAIN LEVEL 8 - 10 Last Admin: 01/27/18 04:16 Dose: 15 mg Oxycodone HCl (Roxicodone -) 5 mg PO Q4H PRN PRN Reason: PAIN LEVEL 1 - 3 Last Admin: 01/27/18 08:07 Dose: 5 mg Oxycodone HCl (Roxicodone -) 10 mg PO Q4H PRN PRN Reason: PAIN LEVEL 4 - 7 Last Admin: 01/26/18 19:54 Dose: 10 mg IMAGING: -EKG: NORMAL SINUS RHYTHM, NORMAL ECG, VR 60, QTc 366 -Throacic Spine XRay: 2 views of the lower thoracic and lumbar spine reveal scoliosis with convexity to the right. A third image shows evidence of spinal fusion with some straightening. The fusion extends from the lower thoracic area through L4. The imaging is available for review. -CXR: Imaging reveals lower thoracic and lumbar spine fusion hardware. There is a weak inspiration with resultant prominent mediastinum and central crowding. There may be some atelectasis or infiltrate developing in the retrocardiac area. There is retained stool seen in the colon. The soft tissues are intact. The patient is rotated to the right. Correlation recommended. ASSESSMENT/PLAN: 27 y/o M with PMHx of Scoliosis now s/p elective spinal surgery and being monitored in the ICU #T7-L4 posterior spinal fusion, instrumentation w/ multilevel facetectomy -POD#2 with no complications -EBL 800cc, was Fluid resuscitated 3.5L -Pain control via Acetaminophen, Oxycodone, Valium -Zofran for Nausea -IV NS @ 100 mls/hr -Incentive spirometer -Maintain campo; D/C when able ambulate -Colace -Continue PT, OOB as tolerated -Monitor Drain for output -Further management of wound and drain as per surgery #FEN -IV NS @ 100 mls/hr -Mag repleted -Diet advanced to regular this AM #PPx -DVT: will Start Heparin TID today Disposition: ICU monitoring Visit type - Emergency Visit Emergency Visit: No - New Patient This patient is new to me today: No - Critical Care Critical Care patient: No - Discharge Referral Referred to [facility] No
[2018-01-27] MEDS ORDERED: oxyCODONE HCL 5 MG TABLET PO PRN (12:08)
[2018-01-27 12:37] VITALS: BMI 27.2
--- NOTE | 2018-01-27 12:41 | PN ---
Teaching Attending Note Name of Resident: Meet Baptiste ATTENDING PHYSICIAN STATEMENT I saw and evaluated the patient. I reviewed the resident's note and discussed the case with the resident. I agree with the resident's findings and plan as documented. SUBJECTIVE: Pt seen and examined in the ICU. Pain relatively controlled. No nausea or vomiting. No fevers or chills but with low grade temp yesterday. OBJECTIVE: Vital Signs Period Temp Pulse Resp BP Sys/Rice Pulse Ox Last 24 Hr 98.4 F-100.5 F 68-104 18-28 101-132/52-95 100-100 Intake & Output 01/24/18 01/25/18 01/26/18 01/27/18 23:59 23:59 23:59 23:59 Intake Total 3400 3440 1830 Output Total 2330 2280 700 Balance 1070 1160 1130 Weight 77.167 kg 76.657 kg Gen: NAD at rest Heart: RRR Lung: decreased breath sounds at the bases Abd: soft, nontender Ext: no edema CBC, BMP 01/27/18 05:30 01/27/18 05:30 Active Medications Acetaminophen (Tylenol Oral Solution -) 650 mg PO Q4H [facility] Diazepam (Valium -) 2.5 mg PO Q6H PRN PRN Reason: POSTOPERATIVE PAIN Last Admin: 01/27/18 09:57 Dose: 2.5 mg Docusate Sodium (Colace -) 100 mg PO TID [facility] Last Admin: 01/27/18 05:39 Dose: 100 mg Ferrous Sulfate (Feosol -) 325 mg PO DAILY@0800 [facility] Last Admin: 01/27/18 09:57 Dose: 325 mg Folic Acid (Folic Acid -) 1 mg PO DAILY [facility] Last Admin: 01/27/18 09:57 Dose: 1 mg Heparin Sodium (Porcine) (Heparin -) 5,000 unit SQ TID [facility] Last Admin: 01/27/18 09:59 Dose: 5,000 unit Sodium Chloride (Normal Saline -) 1,000 mls @ 100 mls/hr IV ASDIR [facility] Last Admin: 01/26/18 19:40 Dose: 100 mls/hr Potassium Phosphate 30 mm/ (Dextrose) 260 mls @ 62.5 mls/hr IVPB ONCE ONE Stop: 01/27/18 13:39 Last Admin: 01/27/18 10:30 Dose: 41.7 mls/hr Ondansetron HCl (Zofran Injection) 4 mg IVPUSH Q6H PRN PRN Reason: NAUSEA Last Admin: 01/26/18 19:47 Dose: 4 mg Oxycodone HCl (Roxicodone -) 10 mg PO Q4H PRN PRN Reason: PAIN LEVEL 4 - 6 Oxycodone HCl (Roxicodone -) 20 mg PO Q4H PRN PRN Reason: PAIN LEVEL 7 - 10 Oxycodone HCl (Roxicodone -) 5 mg PO Q4H PRN PRN Reason: PAIN LEVEL 1 - 3 Oxycodone HCl (Oxycontin -) 20 mg PO BID TARIK ASSESSMENT AND PLAN: Spinal Scoliosis s/p T7-L4 posterior spinal fusion/Instrumentation w/ multilevel facetectomy - pain control - incentive spirometry - bowel regimen - OOB to chair - rehab/PT - DVT prophylaxis - disposition per surgery
[2018-01-27] MEDS: ACETAMINOPHEN 650 MG/20.3 ML ORAL SOLUTION (CUPS) PO SCH ×3 (12:50→20:47)
--- NOTE | 2018-01-27 13:30 | PN ---
Teaching Attending Note Name of Resident: Blanca Mitchell ATTENDING PHYSICIAN STATEMENT I saw and evaluated the patient. I reviewed the resident's note and discussed the case with the resident. I agree with the resident's findings and plan as documented. SUBJECTIVE: No fever or chills. back pain. no vomiting. minimal nausea this am . OBJECTIVE: NAd Cv: RRR Lungs: CTAB ext : no edema Neuro of LE : strength 3/5 in hip flexion b/l due to back pain. 5/5 in knee flexion and extention and ankle dorsiflexion and plantar flexion. nl sensatio to ligh touch. 1+ knee jerk B/l . ASSESSMENT AND PLAN: 27 y/o man with h/o scoliosis who presented for sx and had T7-L4 posterior spinal fusion andl facetectomy 1- T7-L4 posterior spinal fusion and facetectomy 2- back pain 3- Nausea . plan : - pain control with oxycontin and oxycodone - colace - PT. - Dc IVF - regular diet - campo off dispo: ICU level of care Critical Care Total Critical Care Time (in minutes): 30 Critical Care Statement: The care of this patient involved high complexity decision making to prevent further life threatening deterioration of the patient 's condition and/or to evaluate & treat vital organ system(s) failure or risk of failure.
--- NOTE | 2018-01-27 14:34 | PN ---
Progress Note (short form) - Note Progress Note: S: Pt. resting in bed in NAD. C/O some pain O: VAS 7/10 currently. 2/10 at it's best and 10/10 at it's worst A/P: POD #1 s/p T2-L3 laminectomy with fusion 1. Encouraged po pain med use 2. Explained the goal was to get to 4/10 pain 3. Increase pain meds as ordered
[2018-01-27] MEDS ORDERED: POLYETHYLENE GLYCOL 3350 119 GM BTL PO PRN (15:01)
--- NOTE | 2018-01-27 16:41 | PN ---
Physical Exam: SUBJECTIVE: Patient seen and examined at bedside. there was a slight fever overnight. Patient apears to be more down today. He has lost his appetite and is not doing as well on his incentive spirometer as he was doing yesterday. yesterday he was able to routinely max out the spirometer to 2500 without any difficulty. Today he cannot get past 1000. i suspect he is mildly depressed due to lack of energy, pain, and slow progress. There is a possible infiltrate developing in the retrocardiac area on CXR. OBJECTIVE: Vital Signs Period Temp Pulse Resp BP Sys/Rice Pulse Ox Last 24 Hr 98.4 F-100.5 F 78-104 18-28 101-132/52-82 100-100 GENERAL: The patient is awake, alert, and fully oriented, in no acute distress. Depressed affect. HEAD: Normal with no signs of trauma. EYES: PERRL, extraocular movements intact, sclera anicteric, conjunctiva clear. No ptosis. ENT: Ears normal, nares patent, oropharynx clear without exudates, moist mucous membranes. NECK: Trachea midline, full range of motion, supple. LUNGS: Breath sounds equal, clear to auscultation bilaterally, no wheezes, no crackles, no accessory muscle use. HEART: Regular rate and rhythm, S1, S2 without murmur, rub or gallop. ABDOMEN: Soft, nontender, nondistended, normoactive bowel sounds, no guarding, no rebound, no hepatosplenomegaly, no masses. EXTREMITIES: 2+ pulses, warm, well-perfused, no edema. NEUROLOGICAL: Cranial nerves II through XII grossly intact. Normal speech, gait not observed. PSYCH: Depressed affect. Normal mood. SKIN: Warm, dry, normal turgor, no rashes or lesions noted DRAINS: Campo in place, [place] with serosanguineous drainage. Laboratory Results - last 24 hr 01/27/18 01/27/18 05:30 05:30 WBC 7.6 RBC 3.48 L Hgb 9.9 L Hct 30.0 L MCV 86.1 MCH 28.4 MCHC 33.0 RDW 13.3 Plt Count 105 L MPV 9.6 Absolute Neuts (auto) 5.7 Neutrophils % 75.5 Lymphocytes % 17.2 Monocytes % 6.7 Eosinophils % 0.3 Basophils % 0.3 Nucleated RBC % 0 Sodium 141 Potassium 3.6 Chloride 106 Carbon Dioxide 30 Anion Gap 4 L BUN 8 Creatinine 0.9 Creat Clearance w eGFR > 60 Random Glucose 84 Calcium 7.5 L Phosphorus 2.4 L Magnesium 1.7 L Total Bilirubin 0.5 AST 129 H ALT 35 Alkaline Phosphatase 51 Total Protein 4.7 L Albumin 2.4 L Active Medications Generic Name Dose Route Start Last Admin Trade Name Freq PRN Reason Stop Dose Admin Acetaminophen 650 mg 01/27/18 13:00 01/27/18 12:50 Tylenol Oral Solution - PO Not Given Q4H [facility] Diazepam 2.5 mg 01/26/18 17:53 01/27/18 09:57 Valium - PO 2.5 mg Q6H PRN Administration POSTOPERATIVE PAIN Docusate Sodium 100 mg 01/25/18 22:00 01/27/18 14:29 Colace - PO 100 mg TID [facility] Administration Folic Acid 1 mg 01/26/18 10:00 01/27/18 09:57 Folic Acid - PO 1 mg DAILY [facility] Administration Heparin Sodium (Porcine) 5,000 unit 01/27/18 10:00 01/27/18 14:23 Heparin - SQ Not Given TID [facility] Ketorolac Tromethamine 15 mg 01/27/18 18:00 Toradol Injection - IVPUSH 01/29/18 00:01 Q6H [facility] Ondansetron HCl 4 mg 01/25/18 16:21 01/26/18 19:47 Zofran Injection IVPUSH 4 mg Q6H PRN Administration NAUSEA Oxycodone HCl 10 mg 01/27/18 12:08 Roxicodone - PO Q4H PRN PAIN LEVEL 4 - 6 Oxycodone HCl 20 mg 01/27/18 12:08 01/27/18 14:29 Roxicodone - PO 20 mg Q4H PRN Administration PAIN LEVEL 7 - 10 Oxycodone HCl 5 mg 01/27/18 12:08 Roxicodone - PO Q4H PRN PAIN LEVEL 1 - 3 Oxycodone HCl 20 mg 01/27/18 22:00 Oxycontin - PO BID [facility] Polyethylene Glycol 17 gm 01/27/18 15:01 Miralax (For Daily Use) - PO DAILY PRN CONSTIPATION ASSESSMENT/PLAN: Assessment: Patient is a 27 yo M w a pmh of scoliosis who is here for a T7-L4 posterior spinal laminectomy and multiple facetectomies. He is now PO day #2. He has no respiratory distress. Vitals are stable and WNL. He is not doing as well with the spirometer as he was doing yesterday. Today only getting up to 1000. yesterday he was able to reach 2500 with ease. he got out of bed briefly but was in significant pain. Pain which is being treated with oxycontin and now today Toradol was added for analgesic relief. Plan: MSK: # T7 - L4 Spinal Laminectomy + multiple facetectomies -POD #2 W/ no complications -Pain control with Oxycontin 20mg BID and 5/10/20mg Q4H PRN for pain rating (1-3 /4-6/7-10), Valium 2mg BID, Tylenol 650mg Q6H, toradol 15 mg Q6H -IV fluids with LR @125mls/hr -Mechanical Prophylaxis with SCD's and TAAR's -Zophran PRN for nausea -Incentive Spirometer hourly -Strict I&O's with drainage monitoring -May remove campo when patient ambulates -Colace for bowel regimen -PT/OT, OOB - Straightening of the spine seen on the repeat morning X-ray Resp: - No respiratory difficulty. - Patient is not doing as well on the spirometer today as he was yesterday. - Possible retrocardiac infiltrate on CXR. - Review CXR tmrw - CTAB GI: - Clear liquid diet - No GI prophylaxis Cardio: - No acute issues Neuro: - No acute issues Prophylaxis: -SCD's and TARA's for DVT -No GI required F/E/N: -IV NS @ 100 mls/hrLR @125mls/hr -Mag repleted -Diet advanced to regular this AM Code status: Full Code Dispo: We will continue to monitor the patient in the ICU Visit type - Emergency Visit Emergency Visit: Yes ED Registration Date: 01/25/18 Care time: The patient presented to the Emergency Department on the above date and was hospitalized for further evaluation of their emergent condition. - New Patient This patient is new to me today: No - Critical Care Critical Care patient: Yes Total Critical Care Time (in minutes): 36 Critical Care Statement: The care of this patient involved high complexity decision making to prevent further life threatening deterioration of the patient 's condition and/or to evaluate & treat vital organ system(s) failure or risk of failure.
[2018-01-27] MEDS ORDERED: KETOROLAC TROMETHAMINE 15 MG/ML VIAL IVPUSH SCH (18:00)
[2018-01-27] MEDS: KETOROLAC TROMETHAMINE 30 MG/1 ML VIAL IVPUSH SCH (18:56)
[2018-01-28] MEDS: KETOROLAC TROMETHAMINE 30 MG/1 ML VIAL IVPUSH SCH ×3 (00:18→11:27)
[2018-01-28] MEDS: oxyCODONE HCL 10 MG SUSTAINED ACTING TABLET PO SCH ×3 (00:26→22:42)
[2018-01-28] MEDS: ACETAMINOPHEN 650 MG/20.3 ML ORAL SOLUTION (CUPS) PO SCH ×5 (01:33→22:43)
[2018-01-28] MEDS: oxyCODONE HCL 5 MG TABLET PO PRN ×3 (04:00→16:49)
[2018-01-28] MEDS: diazePAM 2 MG TABLET PO PRN (04:00)
[2018-01-28] MEDS: DOCUSATE SODIUM 100 MG CAPSULE (FP) PO SCH ×2 (05:43→22:42)
[2018-01-28] MEDS: HEPARIN NA (PORCINE) 5,000 UNITS/ML 1ML VIAL SQ SCH ×2 (05:43→22:42)
[2018-01-28 06:18] LABS: BASO % 0.3 % (0-2.0); EOS % 1.2 % (0-4.5); HEMATOCRIT 26.7 % (35.4-49); HEMOGLOBIN 8.9 GM/dL (11.7-16.9); LYMPH % 25.3 % (8-40); MCH 28.4 pg (25.7-33.7); MCHC 33.5 g/dl (32.0-35.9); MEAN PLT VOLUME 9.6 fl (7.5-11.1); MONO % 6.1 % (3.8-10.2); NEUT % 67.1 % (42.8-82.8); PLATELET COUNT 114 K/MM3 (134-434); RBC 3.15 M/mm3 (4.00-5.60); RDW 13.3 % (11.9-15.9); WHITE BLOOD COUNT 6.9 K/mm3 (4.0-10.0)
[2018-01-28 06:56] LABS: ALBUMIN 2.3 g/dl (3.4-5.0); ALK PHOS 64 U/L (45-117); ANION GAP 4 MMOL/L (8-16); BILIRUBIN,TOTAL 0.4 mg/dL (0.2-1); BLOOD UREA NITROGEN 6 mg/dL (7-18); CALCIUM 7.7 mg/dL (8.5-10.1); CHLORIDE 103 mmol/L (98-107); CO2 32 mmol/L (21-32); CREATININE 0.8 mg/dL (0.55-1.3); GLUCOSE,RANDOM 85 mg/dL (74-106); PHOSPHOROUS 2.2 mg/dL (2.5-4.9); POTASSIUM 3.6 mmol/L (3.5-5.1); SGOT/AST 113 U/L (15-37); SGPT/ALT 45 U/L (13-61); SODIUM 139 mmol/L (136-145); TOT PROT 4.9 g/dl (6.4-8.2)
--- NOTE | 2018-01-28 07:38 | PN ---
Physical Exam: SUBJECTIVE: Patient seen and examined at bedside. He is out of bed and much more upbeat this morning. no acute events overnight. Looks much happier than yesterday and states his pain is better controlled today than yesterday. He is easily able to max out his spirometer at will with no difficulty. By the end of today his 72 hour waiting period in the ICU should be completed and he should be stable for transfer to med/surg. OBJECTIVE: Vital Signs Period Temp Pulse Resp BP Sys/Rice Pulse Ox Last 24 Hr 98.1 F-99.2 F 69-96 18-24 100-126/49-82 98-100 GENERAL: The patient is awake, alert, and fully oriented, in no acute distress. HEAD: Normal with no signs of trauma. EYES: PERRL, extraocular movements intact, sclera anicteric, conjunctiva clear. No ptosis. ENT: Ears normal, nares patent, oropharynx clear without exudates, moist mucous membranes. NECK: Trachea midline, full range of motion, supple. LUNGS: Breath sounds equal, clear to auscultation bilaterally, no wheezes, no crackles, no accessory muscle use. HEART: Regular rate and rhythm, S1, S2 without murmur, rub or gallop. ABDOMEN: Soft, nontender, nondistended, normoactive bowel sounds, no guarding, no rebound, no hepatosplenomegaly, no masses. EXTREMITIES: 2+ pulses, warm, well-perfused, no edema. NEUROLOGICAL: Cranial nerves II through XII grossly intact. Normal speech, gait not observed. PSYCH: Normal mood, normal affect. SKIN: Warm, dry, normal turgor, no rashes or lesions noted Laboratory Results - last 24 hr 01/28/18 01/28/18 05:30 05:30 WBC 6.9 RBC 3.15 L Hgb 8.9 L Hct 26.7 L MCV 85.0 MCH 28.4 MCHC 33.5 RDW 13.3 Plt Count 114 L MPV 9.6 Absolute Neuts (auto) 4.6 Neutrophils % 67.1 Lymphocytes % 25.3 D Monocytes % 6.1 Eosinophils % 1.2 D Basophils % 0.3 Nucleated RBC % 0 Sodium 139 Potassium 3.6 Chloride 103 Carbon Dioxide 32 Anion Gap 4 L BUN 6 L Creatinine 0.8 Creat Clearance w eGFR > 60 Random Glucose 85 Calcium 7.7 L Phosphorus 2.2 L Magnesium 2.0 Total Bilirubin 0.4 AST 113 H ALT 45 Alkaline Phosphatase 64 Total Protein 4.9 L Albumin 2.3 L Active Medications Generic Name Dose Route Start Last Admin Trade Name Freq PRN Reason Stop Dose Admin Acetaminophen 650 mg 01/27/18 13:00 01/28/18 05:42 Tylenol Oral Solution - PO 650 mg Q4H [facility]AR[facility] Administration Diazepam 2.5 mg 01/26/18 17:53 01/28/18 04:00 Valium - PO 2.5 mg Q6H PRN Administration POSTOPERATIVE PAIN Docusate Sodium 100 mg 01/25/18 22:00 01/28/18 05:43 Colace - PO 100 mg TID TARIK Administration Folic Acid 1 mg 01/26/18 10:00 01/27/18 09:57 Folic Acid - PO 1 mg DAILY [facility] Administration Heparin Sodium (Porcine) 5,000 unit 01/27/18 10:00 01/28/18 05:43 Heparin - SQ 5,000 unit TID [facility] Administration Ketorolac Tromethamine 15 mg 01/27/18 18:00 01/28/18 05:42 Toradol Injection - IVPUSH 01/29/18 00:01 15 mg Q6H [facility] Administration Ondansetron HCl 4 mg 01/25/18 16:21 01/26/18 19:47 Zofran Injection IVPUSH 4 mg Q6H PRN Administration NAUSEA Oxycodone HCl 10 mg 01/27/18 12:08 01/28/18 04:00 Roxicodone - PO 10 mg Q4H PRN Administration PAIN LEVEL 4 - 6 Oxycodone HCl 20 mg 01/27/18 12:08 01/27/18 14:29 Roxicodone - PO 20 mg Q4H PRN Administration PAIN LEVEL 7 - 10 Oxycodone HCl 5 mg 01/27/18 12:08 Roxicodone - PO Q4H PRN PAIN LEVEL 1 - 3 Oxycodone HCl 20 mg 01/27/18 22:00 01/28/18 00:26 Oxycontin - PO 20 mg BID [facility] Administration Polyethylene Glycol 17 gm 01/27/18 15:01 Miralax (For Daily Use) - PO DAILY PRN CONSTIPATION ASSESSMENT/PLAN: Assessment: Patient is a 27 yo M w a pmh of scoliosis who is here for a T7-L4 posterior spinal laminectomy and multiple facetectomies. He is now PO day #3. He has no respiratory distress. Vitals are stable and WNL. he is doing great with the psirometer and easily maxing it out. He is out of bed and has no acute complaints. Pain is better controlled today compared to yesterday. Plan: MSK: # T7 - L4 Spinal Laminectomy + multiple facetectomies -POD #3 W/ no complications -Pain control with Oxycontin 20mg BID and 5/10/20mg Q4H PRN for pain rating (1-3 /4-6/7-10), Valium 2mg BID, Tylenol 650mg Q6H, toradol 15 mg Q6H -Mechanical Prophylaxis with SCD's and TARA's -Zophran PRN for nausea -Incentive Spirometer hourly -Strict I&O's with drainage monitoring -May remove campo when patient ambulates -Colace for bowel regimen -PT/OT, OOB - Straightening of the spine seen on the repeat morning X-ray Resp: - No respiratory difficulty. - Maxing out spirometer at will - Clear CXR - CTAB GI: - Regular diet - No GI prophylaxis Cardio: - No acute issues Neuro: - No acute issues Prophylaxis: -SCD's and TARA's for DVT -No GI required F/E/N: -IV NS @ 100 mls/hr -Phos repleted -Regular diet Code status: Full Code Dispo: Patient can be monitored on the floors pending surgery's approval. Visit type - Emergency Visit Emergency Visit: Yes ED Registration Date: 01/25/18 Care time: The patient presented to the Emergency Department on the above date and was hospitalized for further evaluation of their emergent condition. - New Patient This patient is new to me today: No - Critical Care Critical Care patient: Yes Total Critical Care Time (in minutes): 36 Critical Care Statement: The care of this patient involved high complexity decision making to prevent further life threatening deterioration of the patient 's condition and/or to evaluate & treat vital organ system(s) failure or risk of failure.
--- NOTE | 2018-01-28 09:21 | PN ---
Progress Note (short form) - Note Progress Note: 27yo M POD #3. Pt seen sitting up in chair, still in ICU. Pt states that pain is much improved. Denies n/v, fever, chills. Pt complains of some penile numbess for the past couple days. Pt denies any incontinence or saddle parasthesia. Pt ambulated with PT yesterday. Last Vital Signs Temp Pulse Resp BP Pulse Ox 98.2 F 78 20 105/67 98 01/28/18 07:51 01/28/18 07:51 01/28/18 07:51 01/28/18 07:51 01/28/18 07:52 CBC, BMP 01/28/18 05:30 01/28/18 05:30 GEN: A&0x3, CV: RRR Lungs: breathing comfortably ABD: soft, non-distended, inc tenderness Back: dressing c/d/i, Drain in place with serosanguinous dressing Output: 100ml LE: no calf tendnerss or swelling noted b/l Neuro: 5/5 dorsi/plantar/EHL flexion. Decreased sensation around penis and inner thigh. Problem List - Problems (1) S/P spinal fusion Assessment/Plan: Plan -transfer pt to the floor -continue work with PT OOB/ambulate -will consider pulling drain this afternoon -pain management -dvt ppx Pt discussed with Dr. Villarreal who agrees with plan Code(s): Z98.1 - ARTHRODESIS STATUS
[2018-01-28] MEDS: FOLIC ACID 1 MG TABLET (FP) PO SCH (09:29)
[2018-01-28] MEDS ORDERED: POTASSIUM PHOSPHATE 15 MM in SODIUM CHLORIDE 250 ML IVPB ONE (10:00)
[2018-01-28] MEDS ORDERED: PT OWN MED DRAWER 7, Y5N ONE (10:26)
[2018-01-28] MEDS ORDERED: POLYETHYLENE GLYCOL 3350 119 GM BTL PO PRN ×2 (12:24→15:22)
[2018-01-28] MEDS ORDERED: diazePAM 5 MG TABLET PO PRN ×2 (12:24→15:22)
[2018-01-28] MEDS ORDERED: ONDANSETRON 4 MG/2 ML VIAL IVPUSH PRN ×2 (12:24→15:22)
[2018-01-28] MEDS ORDERED: oxyCODONE HCL 5 MG TABLET PO PRN ×5 (12:24→15:22)
--- NOTE | 2018-01-28 12:27 | PN ---
Teaching Attending Note Name of Resident: Blanca Mitchell ATTENDING PHYSICIAN STATEMENT I saw and evaluated the patient. I reviewed the resident's note and discussed the case with the resident. I agree with the resident's findings and plan as documented. SUBJECTIVE: No fever or chills. pain in back with movement . Decreased sensation in penis , but not in scrotum or buttocks . No incontinence or retention to urine or stool. OBJECTIVE: NAd Cv: RRR Lungs: CTAB ext : no edema Neuro of LE : strength 4/5 in hip flexion b/l due to back pain. 5/5 in knee flexion and extention and ankle dorsiflexion and plantar flexion. nl sensation to light touch. 2+ knee jerk B/l . ASSESSMENT AND PLAN: 27 y/o man with h/o scoliosis who presented for sx and had T7-L4 posterior spinal fusion andl facetectomy 1- T7-L4 posterior spinal fusion and facetectomy 2- back pain 3- Nausea . 4- penile anesthesia plan : - pain control with oxycontin and oxycodone - colace - PT. - DVT PX with heparin and Scds - penile anesthesia ,could be due to nerve injury or surrounding edema. no signs of cauda equina syndrome . - d/w [employer] Meet , Surgical team , aware of problem and don't recommend further treatment/investigation dispo: Tx to MEd SUrg
--- NOTE | 2018-01-28 12:40 | PN ---
Teaching Attending Note Name of Resident: Meet Baptiste ATTENDING PHYSICIAN STATEMENT I saw and evaluated the patient. I reviewed the resident's note and discussed the case with the resident. I agree with the resident's findings and plan as documented. SUBJECTIVE: Pt seen and examined in the ICU. Pain controlled. No nausea or vomiting. No fevers or chills. OBJECTIVE: Vital Signs Period Temp Pulse Resp BP Sys/Rice Pulse Ox Last 24 Hr 98.1 F-98.5 F 69-96 18-20 100-124/49-82 98-98 Intake & Output 01/25/18 01/26/18 01/27/18 01/28/18 23:59 23:59 23:59 23:59 Intake Total 3400 3440 3080 800 Output Total 2330 2280 1050 1450 Balance 1070 1160 2030 -650 Weight 77.167 kg 76.657 kg 77.4 kg Gen: NAD at rest Heart: RRR Lung: decreased breath sounds at the bases Abd: soft, nontender Ext: no edema ASSESSMENT AND PLAN: Spinal Scoliosis s/p T7-L4 posterior spinal fusion/Instrumentation w/ multilevel facetectomy - pain control - incentive spirometry - bowel regimen - OOB to chair - rehab/PT - DVT prophylaxis - can monitor on floor
[2018-01-28] MEDS ORDERED: ACETAMINOPHEN 650 MG/20.3 ML ORAL SOLUTION (CUPS) PO SCH (13:00)
[2018-01-28] MEDS ORDERED: HEPARIN NA (PORCINE) 5,000 UNITS/ML 1ML VIAL SQ SCH (14:00)
[2018-01-28] MEDS ORDERED: DOCUSATE SODIUM 100 MG CAPSULE (FP) PO SCH (14:00)
--- NOTE | 2018-01-28 14:28 | PN ---
Physical Exam: SUBJECTIVE: Patient seen and examined this morning. Complains this morning of decreased sensation over his penis however has sensation over scrotum and buttock; denies saddle anesthesia, loss of bowel or bladder control. [place] some nausea overnight however no vomiting. Perez catheter d/c'ed yesterday; Urinating without difficulty. Passing flatus but no BM as yet. Currently the pain is 5/10 over the incision site however the new pain regimen has been helping. Patient this AM was able to sit up in the chair for >3 hours. Continues to deny any SOB and is incentive spirometer regularly. Denies any fevers, chills, chest pain, numbness, tingling. OBJECTIVE: Vital Signs Period Temp Pulse Resp BP Sys/Rice Pulse Ox Last 24 Hr 98.1 F-98.2 F 69-96 18-20 100-123/49-74 98-98 GENERAL: A&Ox3, NAD, sitting upright in the room chair HEAD: NCAT EYES: PERRL, EOMI ENT: Oropharynx clear without exudates, moist mucous membranes. NECK: No JVD LUNGS: CTAB, no wheezes HEART: Regular rate and rhythm, S1, S2 without murmur ABDOMEN: Soft, nontender, nondistended, + bowel sounds, no guarding BACK: Wound site covered in dressing with drain present, draining bright red blood; No surrounding erythema or swelling. EXTREMITIES: 2+ pulses, no edema NEUROLOGICAL: Cranial nerves II through XII grossly intact. Normal speech. L4- S1 gross sensation intact. 3/5 Muscle strength to hip flexion (patient attributes to pain), 4/5 to dorsiflexion, plantarflexion. SKIN: Warm, dry Laboratory Results - last 24 hr 01/25/18 01/28/18 01/28/18 07:30 05:30 05:30 WBC 6.9 RBC 3.15 L Hgb 8.9 L Hct 26.7 L MCV 85.0 MCH 28.4 MCHC 33.5 RDW 13.3 Plt Count 114 L MPV 9.6 Absolute Neuts (auto) 4.6 Neutrophils % 67.1 Lymphocytes % 25.3 D Monocytes % 6.1 Eosinophils % 1.2 D Basophils % 0.3 Nucleated RBC % 0 Sodium 139 Potassium 3.6 Chloride 103 Carbon Dioxide 32 Anion Gap 4 L BUN 6 L Creatinine 0.8 Creat Clearance w eGFR > 60 Random Glucose 85 Calcium 7.7 L Phosphorus 2.2 L Magnesium 2.0 Total Bilirubin 0.4 AST 113 H ALT 45 Alkaline Phosphatase 64 Total Protein 4.9 L Albumin 2.3 L Crossmatch IS Only See Detail Active Medications Acetaminophen (Tylenol Oral Solution -) 650 mg PO Q4H [facility] Last Admin: 01/28/18 13:20 Dose: 650 mg Diazepam (Valium -) 2.5 mg PO Q6H PRN PRN Reason: POSTOPERATIVE PAIN Docusate Sodium (Colace -) 100 mg PO TID [facility] Last Admin: 01/28/18 13:21 Dose: 100 mg Folic Acid (Folic Acid -) 1 mg PO DAILY [facility] Heparin Sodium (Porcine) (Heparin -) 5,000 unit SQ TID [facility] Last Admin: 01/28/18 13:21 Dose: 5,000 unit Potassium Phosphate 15 mm/ (Sodium Chloride) 255 mls @ 62.5 mls/hr IVPB ONCE ONE Stop: 01/28/18 14:04 Last Admin: 01/28/18 10:39 Dose: 62.5 mls/hr Ketorolac Tromethamine (Toradol Injection -) 15 mg IVPUSH Q6H [facility] Stop: 01/29/18 00:01 Ondansetron HCl (Zofran Injection) 4 mg IVPUSH Q6H PRN PRN Reason: NAUSEA Oxycodone HCl (Roxicodone -) 10 mg PO Q4H PRN PRN Reason: PAIN LEVEL 4 - 6 Oxycodone HCl (Roxicodone -) 20 mg PO Q4H PRN PRN Reason: PAIN LEVEL 7 - 10 Oxycodone HCl (Roxicodone -) 5 mg PO Q4H PRN PRN Reason: PAIN LEVEL 1 - 3 Oxycodone HCl (Oxycontin -) 20 mg PO BID [facility] Polyethylene Glycol (Miralax (For Daily Use) -) 17 gm PO DAILY PRN PRN Reason: CONSTIPATION IMAGING: -EKG: NORMAL SINUS RHYTHM, NORMAL ECG, VR 60, QTc 366 -Throacic Spine XRay: 2 views of the lower thoracic and lumbar spine reveal scoliosis with convexity to the right. A third image shows evidence of spinal fusion with some straightening. The fusion extends from the lower thoracic area through L4. The imaging is available for review. -CXR (01/27): Imaging reveals lower thoracic and lumbar spine fusion hardware. There is a weak inspiration with resultant prominent mediastinum and central crowding. There may be some atelectasis or infiltrate developing in the retrocardiac area. There is retained stool seen in the colon. The soft tissues are intact. The patient is rotated to the right. Correlation recommended. -CXR (01/28): No acute chest pathology. ASSESSMENT/PLAN: 27 y/o M with PMHx of Scoliosis now s/p elective spinal surgery and being monitored in the ICU #T7-L4 posterior spinal fusion, instrumentation w/ multilevel facetectomy -POD#3 with no complications -EBL 800cc, was Fluid resuscitated 3.5L -Pain control via Acetaminophen, Oxycodone, Valium, Toradol -Zofran for Nausea -Incentive spirometer -Colace -Continue PT, OOB as tolerated -Monitor Drain for output -Further management of wound and drain as per surgery #Penile Anesthesia -Consider due to Edema or irritation of nerves -Spoke with Surgical NAVARRO Dsouza who recommends we continue to monitor as this may persist for weeks and MRI is not indicated at this time #FEN -PO Fluids -Mag, Phos repleted -Regular diet #PPx -DVT: Heparin Disposition: Transfer to Med-Surg Visit type - Emergency Visit Emergency Visit: Yes ED Registration Date: 01/25/18 Care time: The patient presented to the Emergency Department on the above date and was hospitalized for further evaluation of their emergent condition. - New Patient This patient is new to me today: No - Critical Care Critical Care patient: No - Discharge Referral Referred to [facility] Med P.C.: No
--- NOTE | 2018-01-28 16:32 | PN ---
Progress Note (short form) - Note Progress Note: Surgery POD #[address] Villarreal to pull drain. Hemavac drain pulled with tip fully intact. Pressure dressing applied. Drain site clean and dry with no active d/c. Patient tolerated the procedure well. <Jessica Urrutia - Last Filed: 01/28/18 16:28> - Note Progress Note: Patient seen and examined Agree with above Patient was able to ambulate better today Has some nausea but overall is doing well <aFdy Villarreal - Last Filed: 01/29/18 13:27>
[2018-01-28] MEDS ORDERED: KETOROLAC TROMETHAMINE 30 MG/1 ML VIAL IVPUSH SCH (18:00)
[2018-01-28] MEDS: KETOROLAC TROMETHAMINE 15 MG/ML VIAL IVPUSH SCH (18:12)
[2018-01-28] MEDS ORDERED: oxyCODONE HCL 10 MG SUSTAINED ACTING TABLET PO SCH (22:00)
[2018-01-29] MEDS: KETOROLAC TROMETHAMINE 15 MG/ML VIAL IVPUSH SCH (00:18)
[2018-01-29] MEDS: ACETAMINOPHEN 650 MG/20.3 ML ORAL SOLUTION (CUPS) PO SCH ×4 (01:15→17:19)
[2018-01-29] MEDS: oxyCODONE HCL 5 MG TABLET PO PRN ×2 (03:47→12:10)
[2018-01-29] MEDS: HEPARIN NA (PORCINE) 5,000 UNITS/ML 1ML VIAL SQ SCH ×2 (06:10→17:19)
[2018-01-29] MEDS: DOCUSATE SODIUM 100 MG CAPSULE (FP) PO SCH ×2 (06:10→17:19)
[2018-01-29 07:51] LABS: BASO % 0.5 % (0-2.0); EOS % 5.7 % (0-4.5); HEMATOCRIT 27.2 % (35.4-49); HEMOGLOBIN 8.9 GM/dL (11.7-16.9); LYMPH % 28.1 % (8-40); MCH 27.9 pg (25.7-33.7); MCHC 32.7 g/dl (32.0-35.9); MEAN CELL VOLUME 85.4 fl (80-96); MEAN PLT VOLUME 8.6 fl (7.5-11.1); MONO % 7.5 % (3.8-10.2); NEUT % 58.2 % (42.8-82.8); PLATELET COUNT 160 K/MM3 (134-434); RBC 3.18 M/mm3 (4.00-5.60); RDW 13.3 % (11.9-15.9); WHITE BLOOD COUNT 4.4 K/mm3 (4.0-10.0)
[2018-01-29 08:11] LABS: ALBUMIN 2.4 g/dl (3.4-5.0); ALK PHOS 94 U/L (45-117); ANION GAP 6 MMOL/L (8-16); BILIRUBIN,TOTAL 0.3 mg/dL (0.2-1); BLOOD UREA NITROGEN 7 mg/dL (7-18); CALCIUM 7.9 mg/dL (8.5-10.1); CHLORIDE 105 mmol/L (98-107); CO2 30 mmol/L (21-32); CREATININE 0.8 mg/dL (0.55-1.3); GLUCOSE,RANDOM 88 mg/dL (74-106); MAGNESIUM 1.9 mg/dL (1.8-2.4); PHOSPHOROUS 3.2 mg/dL (2.5-4.9); POTASSIUM 3.5 mmol/L (3.5-5.1); SGOT/AST 110 U/L (15-37); SGPT/ALT 66 U/L (13-61); SODIUM 141 mmol/L (136-145)
--- NOTE | 2018-01-29 08:16 | PN ---
Addendum entered and electronically signed by Doug Wilkerson PA 01/29/18 10:01: Scoliosis study ordered Original Note: Progress Note (short form) - Note Progress Note: POD #4 Alert. Supine in bed. C/o incisional tenderness. Adequate pain control with medications ordered. He continues to be oob and ambulating. Voiding/stooling spontaneously. Physical Therapy --> c/o increased back pain, dizziness, and nausea with movement. Pt. able to take a few steps forwards/backwards and then transfer to bedside chair with min. assist x 2 for chair transfer. Last Vital Signs Temp Pulse Resp BP Pulse Ox 98.7 F 91 H 20 115/57 L 98 01/29/18 06:50 01/29/18 06:50 01/29/18 06:50 01/29/18 06:50 01/28/18 21:00 CBC, BMP 01/29/18 07:00 01/29/18 07:00 Gen: nad Back: dressing c/d/i. No signs of infection Neuro: GMNVI all extremities. <Doug Wilkerson - Last Filed: 01/29/18 08:55> - Note Progress Note: Patient seen and examined Agree with above <Fady Villarreal - Last Filed: 01/29/18 13:28> Problem List - Problems (1) S/P spinal fusion Assessment/Plan: POD #4 s/p T7-L4 posterior spinal fusion, instrumentation w/ multilevel facetectomy Cont OOB and ambulate with rolling walker Await PT recommendations for out-patient PT --> Case Management for in-home PT ordered Pain management as ordered f/u Thoracic/Lumbar xray (erect) DC planning Code(s): Z98.1 - ARTHRODESIS STATUS <Doug Wilkerson - Last Filed: 01/29/18 08:55>
[2018-01-29] MEDS ORDERED: BISACODYL 5 MG TABLET.DR (FP) PO ONE (09:30)
[2018-01-29] MEDS ORDERED: FOLIC ACID 1 MG TABLET (FP) PO SCH ×2 (10:00)
[2018-01-29] MEDS: oxyCODONE HCL 10 MG SUSTAINED ACTING TABLET PO SCH (10:32)
--- NOTE | 2018-01-29 13:43 | PN ---
Teaching Attending Note Name of Resident: Blanca Mitchell ATTENDING PHYSICIAN STATEMENT I saw and evaluated the patient. I reviewed the resident's note and discussed the case with the resident. I agree with the resident's findings and plan as documented. SUBJECTIVE: No fever or chills . back pain improved. No urinary incontinence, no stool incontinence . numbness in penis is slightly better. OBJECTIVE: NAd Cv: RRR Lungs: CTAB Ext : no edema Neuro of LE : strength 5/5 in hip flexion b/l. 5/5 in knee flexion and extention and ankle dorsiflexion and plantar flexion. nl sensation to light touch. 2+ knee jerk B/l . decreased sensation in penis.nl over scrotum . nl sensatio in buttocks and perianal area ASSESSMENT AND PLAN: 27 y/o man with h/o scoliosis who presented for sx and had T7-L4 posterior spinal fusion andl facetectomy 1- T7-L4 posterior spinal fusion and facetectomy 2- back pain 3- Nausea . 4- penile anesthesia plan : - pain control - colace - PT. - penile anesthesia. Improved . monitor - xray of spine pending Dispo : possible dc today. Home PT , VNS arranged. pain meds to be prescribed by surgical team at dc
[2018-01-29 14:12] VITALS: BP 124/66; PULSE 87; TEMP 98.6
--- NOTE | 2018-01-29 15:32 | DS ---
"Physical Exam: SUBJECTIVE: Patient seen and examined I was contacted regarding pt mentioned medication , family is asking about pain medicine , I called the family and explained to them that floor team send only laxatives medicine per discharged order . Dr Barbara jovel surgeon is the one who send the pain control medicine ,I provide the patient with the pharmacy information on the chart , they will call and ask to transfer the medication to another pharmacy closer to them . DR Wood will send 3 days supply pain meds for the patient just in case could not get in touch of the surgeon over the week end. OBJECTIVE: PHYSICAL EXAM GENERAL: The patient is awake, alert, and fully oriented, in no acute distress. HEAD: Normal with no signs of trauma. EYES: PERRL, extraocular movements intact, sclera anicteric, conjunctiva clear. ENT: Ears normal, nares patent, oropharynx clear without exudates, moist mucous membranes. NECK: Trachea midline, full range of motion, supple. LUNGS: Breath sounds equal, clear to auscultation bilaterally, no wheezes, no crackles, no accessory muscle use. HEART: Regular rate and rhythm, S1, S2 without murmur, rub or gallop. ABDOMEN: Soft, nontender, nondistended, normoactive bowel sounds, no guarding, no rebound, no hepatosplenomegaly, no masses. EXTREMITIES: 2+ pulses, warm, well-perfused, no edema. NEUROLOGICAL: Cranial nerves II through XII grossly intact. Normal speech, gait not observed. PSYCH: Normal mood, normal affect. SKIN: Warm, dry, normal turgor, no rashes or lesions noted. LABS HOSPITAL COURSE: Date of Admission:01/25/18 Date of Discharge: 01/30/18 <Scar Gan - Last Filed: 01/30/18 15:56> Physical Exam: SUBJECTIVE: Patient seen and examined this morning. Decreased sensation over his penis has improved. Continues to Urinate without difficulty. Continues to pass flatus. Able to ambulate in the hallway with walker. Denies any fevers, chills, chest pain, SOB, numbness, tingling. OBJECTIVE: Vital Signs Period Temp Pulse Resp BP Sys/Rice Pulse Ox Last 24 Hr 98.5 F-98.8 F 78-99 19-20 115-140/54-80 98 PHYSICAL EXAM GENERAL: A&Ox3, NAD, sitting upright in the room chair HEAD: NCAT EYES: PERRL, EOMI ENT: Oropharynx clear without exudates, moist mucous membranes. NECK: No JVD LUNGS: CTAB, no wheezes HEART: Regular rate and rhythm, S1, S2 without murmur ABDOMEN: Soft, nontender, nondistended, + bowel sounds, no guarding BACK: Wound site covered in dressing; No surrounding erythema or swelling. EXTREMITIES: 2+ pulses, no edema NEUROLOGICAL: Cranial nerves II through XII grossly intact. Normal speech. L4- S1 gross sensation intact. 3/5 Muscle strength to hip flexion (patient attributes to pain), 4/5 to dorsiflexion, plantarflexion. SKIN: Warm, dry LABS Laboratory Last Values WBC 4.4 K/mm3 (4.0-10.0) 01/29/18 07:00 RBC 3.18 M/mm3 (4.00-5.60) L 01/29/18 07:00 Hgb 8.9 GM/dL (11.7-16.9) L 01/29/18 07:00 Hct 27.2 % (35.4-49) L 01/29/18 07:00 MCV 85.4 fl (80-96) 01/29/18 07:00 MCH 27.9 pg (25.7-33.7) 01/29/18 07:00 MCHC 32.7 g/dl (32.0-35.9) 01/29/18 07:00 RDW 13.3 % (11.9-15.9) 01/29/18 07:00 Plt Count 160 K/MM3 (134-434) D 01/29/18 07:00 MPV 8.6 fl (7.5-11.1) D 01/29/18 07:00 Absolute Neuts (auto) 2.6 K/mm3 (1.5-8.0) 01/29/18 07:00 Neutrophils % 58.2 % (42.8-82.8) 01/29/18 07:00 Lymphocytes % 28.1 % (8-40) 01/29/18 07:00 Monocytes % 7.5 % (3.8-10.2) 01/29/18 07:00 Eosinophils % 5.7 % (0-4.5) H D 11/16/18 07:00 Basophils % 0.5 % (0-2.0) 01/29/18 07:00 Nucleated RBC % 0 % (0-0) 01/29/18 07:00 Sodium 141 mmol/L (136-145) 01/29/18 07:00 Potassium 3.5 mmol/L (3.5-5.1) 01/29/18 07:00 Chloride 105 mmol/L (98-107) 01/29/18 07:00 Carbon Dioxide 30 mmol/L (21-32) 01/29/18 07:00 Anion Gap 6 MMOL/L (8-16) L 01/29/18 07:00 BUN 7 mg/dL (7-18) 01/29/18 07:00 Creatinine 0.8 mg/dL (0.55-1.3) 01/29/18 07:00 Creat Clearance w eGFR > 60 (>60) 01/29/18 07:00 Random Glucose 88 mg/dL (74-106) 01/29/18 07:00 Calcium 7.9 mg/dL (8.5-10.1) L 01/29/18 07:00 Phosphorus 3.2 mg/dL (2.5-4.9) 01/29/18 07:00 Magnesium 1.9 mg/dL (1.8-2.4) 01/29/18 07:00 Total Bilirubin 0.3 mg/dL (0.2-1) 01/29/18 07:00 AST 110 U/L (15-37) H 01/29/18 07:00 ALT 66 U/L (13-61) H 01/29/18 07:00 Alkaline Phosphatase 94 U/L (45-117) 01/29/18 07:00 Total Protein 5.0 g/dl (6.4-8.2) L 01/29/18 07:00 Albumin 2.4 g/dl (3.4-5.0) L 01/29/18 07:00 Blood Type O POSITIVE 01/25/18 07:30 Antibody Screen Negative 01/25/18 06:40 Crossmatch IS Only See Detail 01/25/18 07:30 IMAGING: -EKG: NORMAL SINUS RHYTHM, NORMAL ECG, VR 60, QTc 366 -Throacic Spine XRay: 2 views of the lower thoracic and lumbar spine reveal scoliosis with convexity to the right. A third image shows evidence of spinal fusion with some straightening. The fusion extends from the lower thoracic area through L4. The imaging is available for review. -CXR (01/27): Imaging reveals lower thoracic and lumbar spine fusion hardware. There is a weak inspiration with resultant prominent mediastinum and central crowding. There may be some atelectasis or infiltrate developing in the retrocardiac area. There is retained stool seen in the colon. The soft tissues are intact. The patient is rotated to the right. Correlation recommended. -CXR (01/28): No acute chest pathology. -CXR (01/29): No sign of infiltrate. Weak inspiration. Previous spinal fusion. No change since 01/28/2018. HOSPITAL COURSE: Date of Admission:01/25/18 Date of Discharge: 01/29/18 ASSESSMENT/PLAN: 27 y/o M with PMHx of Scoliosis was admitted for elective T7-L4 posterior spinal fusion, instrumentation w/ multilevel facetectomy. Patient was initially monitored in the ICU; His KAYLENE drain was eventually pulled and be did not experience any complications during his stay. His pain was controlled. Patient continued to work with PT during his stay and was able to ambulate with a walker. Patient used his incentive spirometer and denies any SOB. Patient was able to urinate without difficulty. He was able to pass flatus and continued on a bowel regimen. Patient experienced some Penile anesthesia without saddle anesthesia or loss of bowel/bladder control. Surgical PA was informed and recommended outpatient follow up if it persists. Patient was discharged home with Home PT and VNS arranged; Pain medications to be sent by surgical staff. Minutes to complete discharge: 45 <Blanca Mitchell - Last Filed: 01/31/18 09:13> Discharge Summary - Home Medications Comprehensive Discharge Medication List: Ambulatory Orders Docusate Sodium [Colace] 100 mg PO DAILY #30 capsule 01/29/18 Miscellaneous Medical Supply [Outpatient Order] 1 each ASDIR #1 misc Polyethylene Glycol 3350 [Miralax (For Daily Use) -] 17 gm PO DAILY #1 bottle Sennosides [Senna] 8.6 mg PO DAILY #30 tablet 01/29/18 <Scar Gan - Last Filed: 01/30/18 15:56> Reason For Visit: SCOLIOSIS Current Active Problems S/P spinal fusion (Acute) - Home Medications Comprehensive Discharge Medication List: Ambulatory Orders Docusate Sodium [Colace] 100 mg PO DAILY #30 capsule 01/29/18 Miscellaneous Medical Supply [Outpatient Order] 1 each ASDIR #1 misc Polyethylene Glycol 3350 [Miralax (For Daily Use) -] 17 gm PO DAILY #1 bottle Sennosides [Senna] 8.6 mg PO DAILY #30 tablet 01/29/18 <Blanca Mitchell - Last Filed: 01/31/18 09:13> Condition: Improved - Instructions Diet, Activity, Other Instructions: Post Operative Instructions - Dr Villarreal Diet: You may resume your regular diet. We recommend eating plenty of fiber rich foods to prevent constipation, which can be caused by taking narcotic pain medications. You may also use a stool softener such as DulcoEase. We recommend drinking plenty of water unless you are on fluid restrictions for another medical condition. Medications: You may resume your previous medications unless otherwise instructed by your surgeon, primary care doctor or physician assistant psychiatry. You have been prescribed a Narcotic pain medication. Driving or drinking alcohol is PROHIBITED while taking narcotic* pain medication, as is operating any heavy machinery. Activity: No bending and or twisting at the waist. No lifting greater than [address] until seen in the office for your first post-operative visit. You may be a passenger for a short time (20-30 minutes) until you are able to tolerate longer distances. Wound Care: Keep area clean and dry. May remove dressing in two (2) days and replace with clean gauze and occlusive dressing such as a tegaderm. NO BATHS. You may shower starting two (2) days after your surgery. When showering, leave the occlusive(plastic) dressing in place and change if it appears wet. Avoid direct water stream onto your incision. General Recommendations: If sitting, use only a straight back chair to ensure proper support, not to exceed a half hour at a time. Lie only on a firm mattress, no couches or recliner chairs. You may lie on your back or side, but not on your abdomen. * Absolutely no bending, stooping, pushing, lifting or straining. * Avoid housework, especially vacuuming or sweeping. * OK to cook, as long as you are not lifting anything heavier than 5 pounds. * Use proper body mechanics to maintain a neutral spine position. * Increasing pain is a red flag telling you to rest. Call your surgeon or report to the ED if you develop: Fevers over 101.5 Chest pain, trouble breathing, calf pain Drainage from the incision (yellow/green, foul smelling) Follow-up Call surgeon's office to schedule your follow-up appointment in two weeks. Referred to following clinics/specialists for follow-up care: Fady Villarreal MD [facility]/[address], [address] [place] [address] [phone] * [place] [employer] checked prior too escribe of narcotics for pain management This report was requested by: Doug Wilkerson | Reference #: [id number] Disposition: VNS/HOME HEALTH CARE This patient is new to me today: No Emergency Visit: No Critical Care patient: No - Discharge Referral Referred to [facility] No <Blanca Mitchell - Last Filed: 01/31/18 09:13>"
[2018-01-29] MEDS ORDERED: oxyCODONE HCL 5 MG TABLET PO PRN ×2 (15:48)
[2018-01-29] MEDS ORDERED: oxyCODONE HCL 10 MG SUSTAINED ACTING TABLET PO SCH (15:49)
== END 2018-01-29 17:30 | disposition home health service (06) | DRG 454 ==
LOC: JSAMEDAYSX 06:26 → JICU 19:43 → J6S 01-28 14:15
PROVIDERS: ADMIT Orthopaedic Surgery Orthopaedic Surgery of the Spine; ATTEND Internal Medicine
PROC: 0RG8071 Fusion of 8 or more Thoracic Vertebral Joints with Autologous Tissue Substitute, Posterior Approach, Posterior Column, Open Approach (ICD-10-PCS; 2018-01-25)
PROC: XRG New Technology, Joints, Fusion (ICD-10-PCS; principal; 2018-01-25 08:00)
DX: M41.9 Scoliosis, unspecified (principal); J98.11 Atelectasis; M51.25 Other intervertebral disc displacement, thoracolumbar region
CPT/HCPCS: 36415; 71045-TC-FY; 72070-TC-FY; 76000-TC-FY; 80048; 80053; 83735; 84100; 85025; 85027; 86850; 86900; 86901; 86922; 93005; 93010; 94010; 94760; 97116-GP; 97161-GP; J0131; J1644; J7030

== ENCOUNTER 2018-02-13 08:31 | Emergency (ER) | payer OTHER ==
[2018-02-13 08:56] VITALS: BMI 25.0
--- NOTE | 2018-02-13 09:04 | PDOC ---
History of Present Illness - General Chief Complaint: Shortness of Breath Stated Complaint: SHORTNESS OF BREATH Time Seen by Provider: 02/13/18 09:04 - History of Present Illness Initial Comments: 27 year old male with PMH of recent thorac-lumbar fixation for scoliosis 3.5 weeks prior (Ortho - Fadydionne Villarreal) presenting with right sided posterior rib pain that hasn't improved with his home oxycodone and tylenol. Patient does admit that he was walking more briskly yesterday morning and that his pain came on after laying still for an extended period in the mid afternoon. 02/13/18 11:40 Past History - Past Medical History Allergies/Adverse Reactions: Allergies Allergy/AdvReac Type Severity Reaction Status Date / Time No Known Allergies Allergy Verified 02/13/18 08:50 Home Medications: Ambulatory Orders NK [No Known Home Medication] 02/13/18 COPD: No - Surgical History Neurologic Surgery: Yes (t2-l5 spinal fussion) - Suicide/Smoking/Psychosocial Hx Smoking History: Never smoked Have you smoked in the past 12 months: No Information on smoking cessation initiated: No Hx Alcohol Use: No Drug/Substance Use Hx: No Substance Use Type: Marijuana Hx Substance Use Treatment: No Review of Systems - Review of Systems Constitutional: No: Diaphoresis, Fever, Loss of Appetite HEENTM: No: Blurred Vision, Tearing Respiratory: No: Cough, Orthopnea, Shortness of Breath Cardiac (ROS): No: Chest Pain, Edema, Irregular Heart Rate ABD/GI: No: Diarrhea, Nausea, Vomiting : No: Dysuria, Discharge, Frequency Musculoskeletal: No: Joint Pain, Joint Swelling, Muscle Weakness, Neck Pain, Joint Stiffness Integumentary: No: Pallor, Pruritus, Rash Neurological: No: Numbness, Paresthesia, Tremors, Weakness Psychiatric: No: Anxiety, Depression Hematologic/Lymphatic: No: Anemia, Blood Clots, Easy Bleeding *Physical Exam - Vital Signs Last Vital Signs Temp Pulse Resp BP Pulse Ox 98.6 F 62 18 120/63 100 02/13/18 08:51 02/13/18 08:51 02/13/18 08:51 02/13/18 08:51 02/13/18 08:51 - Physical Exam General Appearance: Yes: Nourished, Appropriately Dressed. No: Apparent Distress HEENT: positive: EOMI, KAM, Normal ENT Inspection, Normal Voice Neck: positive: Trachea midline, Normal Thyroid, Supple. negative: Tender, Rigid Respiratory/Chest: positive: Lungs Clear, Normal Breath Sounds. negative: Chest Tender, Respiratory Distress Cardiovascular: positive: Regular Rhythm, Regular Rate Gastrointestinal/Abdominal: positive: Normal Bowel Sounds, Flat. negative: Tender Lymphatic: negative: Adenopathy, Tenderness Musculoskeletal: positive: Other (large midline scar across thoracic and sacral spine. Mild right sided paraspinal tenderness. Surgical site C/D/I). negative: Normal Inspection, Vertebral Tenderness Extremity: positive: Normal Capillary Refill, Normal Inspection, Normal Range of Motion. negative: Tender Integumentary: positive: Normal Color, Dry, Warm Neurologic: positive: Fully Oriented, Alert, Normal Mood/Affect, Normal Response , Motor Strength 5/5 Moderate Sedation - Procedure Monitoring Vital Signs: Procedure Monitoring Vital Signs Temperature 98.6 F 02/13/18 08:51 Pulse Rate 62 02/13/18 08:51 Respiratory Rate 18 02/13/18 08:51 Blood Pressure 120/63 02/13/18 08:51 O2 Sat by Pulse Oximetry (%) 100 02/13/18 08:51 ED Treatment Course - LABORATORY CBC & Chemistry Diagram: 02/13/18 10:18 02/13/18 10:18 Medical Decision Making - Medical Decision Making 27 year old male with 3.5 week old T-L spinal fusion presenting with right sided posterior lower back pain after walking briskly yesterday AM. Reproducible pain over that area and with movement. CTE PE negative, but back films demonstrated possible misaligned pedicle screwed. Discussed with Dr. Lawler, covering for Dr. Villarreal who believes that the screws are unchanged from his post op XR. Will DC with ortho follow up and Tylenol/ ibuprofen use instructions. 02/13/18 14:33 *DC/Admit/Observation/Transfer Diagnosis at time of Disposition: S/P spinal fusion Back pain Qualifiers: Back pain location: thoracic back pain Chronicity: acute Back pain laterality: right Qualified Code(s): M54.6 - Pain in thoracic spine - Discharge Dispostion Disposition: HOME Condition at time of disposition: Improved Decision to Admit order: No - Referrals Referrals: Chicho Cunningham [Primary Care Provider] - - Patient Instructions Printed Discharge Instructions: Thoracic Back Pain Additional Instructions: Please use the Tylenol and Motrin for the pain along with your oxycodone. Please follow up with your orthopedic surgeon early next week. Your hardware is in the correct space and and you do not have a clot in your lungs. Please return to the ED if you have new or worsening symptoms. - Post Discharge Activity
--- NOTE | 2018-02-13 09:43 | PDOC ---
Attending Attestation - Resident Resident Name: Mega Barbosa - ED Attending Attestation I have performed the following: I have examined & evaluated the patient, The case was reviewed & discussed with the resident, I agree w/resident's findings & plan, Exceptions are as noted - HPI HPI: 27 yo M history scoliosis s/p spinal fusion on Feb 03 presents with abrupt onset sharp R lower rib margin pain. Associated with SOB, pleuritic pain. He states that movements also worsen the pain. No weakness, numbness. He also states he was more active than usual yesterday (has not yet started PT, but has been walking with a walker). No recent leg swelling. - Physicial Exam PE: GENERAL: Awake, alert, and fully oriented, in no acute distress HEAD: No signs of trauma EYES: PERRLA, EOMI, sclera anicteric, conjunctiva clear ENT: Auricles normal inspection, hearing grossly normal, nares patent, oropharynx clear without exudates. Moist mucosa NECK: Normal ROM, supple, no lymphadenopathy, JVD, or masses LUNGS: Patient with splinting with deep inspiration. Good air entry B/L. No wheezes, and no crackles. +Tenderness to R lower rib margin in the mid-axillary line. HEART: Regular rate and rhythm, normal S1 and S2, no murmurs, rubs or gallops ABDOMEN: Soft, nontender, normoactive bowel sounds. No guarding, no rebound. No masses EXTREMITIES: Normal range of motion, no edema. No clubbing or cyanosis. No cords, erythema, or tenderness NEUROLOGICAL: Cranial nerves II through XII grossly intact. Normal speech. Motor and sensation intact. SKIN: Warm, Dry, normal turgor, no rashes or lesions noted. - Medical Decision Making DDx includes PE (SOB, pleuritic pain, and patient is speaking in short sentences to avoid pain), MSK pain, slipped hardware. Will obtain XR T-spine and L-spine. Will obtain CTA chest to r/o PE.
[2018-02-13] MEDS ORDERED: KETOROLAC TROMETHAMINE 30 MG/1 ML VIAL IVPUSH ONE (10:10)
[2018-02-13] MEDS ORDERED: KETOROLAC TROMETHAMINE 30 MG/1 ML VIAL ONE (10:26)
[2018-02-13 10:34] LABS: HEMATOCRIT 32.9 % (35.4-49); HEMOGLOBIN 11.2 GM/dL (11.7-16.9); MCHC 33.9 g/dl (32.0-35.9); MEAN CELL VOLUME 85.4 fl (80-96); MEAN PLT VOLUME 7.8 fl (7.5-11.1); PLATELET COUNT 535 K/MM3 (134-434); RBC 3.85 M/mm3 (4.00-5.60); RDW 13.6 % (11.9-15.9)
[2018-02-13 10:58] LABS: INR 1.17 (0.83-1.09); PROTHROMBIN TIME (PATIENT) 13.8 SEC (9.7-13.0)
[2018-02-13 11:01] LABS: ALBUMIN 3.8 g/dl (3.4-5.0); ALK PHOS 190 U/L (45-117); ANION GAP 5 MMOL/L (8-16); BILIRUBIN,TOTAL 0.5 mg/dL (0.2-1); BLOOD UREA NITROGEN 6 mg/dL (7-18); CALCIUM 9.9 mg/dL (8.5-10.1); CHLORIDE 100 mmol/L (98-107); CO2 31 mmol/L (21-32); CREATININE 0.9 mg/dL (0.55-1.3); GLUCOSE,RANDOM 81 mg/dL (74-106); POTASSIUM 4.3 mmol/L (3.5-5.1); SGOT/AST 57 U/L (15-37); SGPT/ALT 95 U/L (13-61); SODIUM 136 mmol/L (136-145); TOT PROT 7.9 g/dl (6.4-8.2)
[2018-02-13 14:08] VITALS: TEMP 98.1
[2018-02-13 14:59] VITALS: BP 115/67; PULSE 70
== END 2018-02-13 14:59 | disposition home or self-care (01) ==
LOC: JER 08:31
PROC: 3E0333Z Introduction of Anti-inflammatory into Peripheral Vein, Percutaneous Approach (ICD-10-PCS; principal; 2018-02-13)
DX: M54.6 Pain in thoracic spine (principal); Z98.1 Arthrodesis status
CPT/HCPCS: 36415; 71275-TC; 72070-TC-FY; 72100-TC-FY; 80053; 85027; 85610; 99284-25